=== PATIENT | female | born 1940 | race Caucasian/White ===

== ENCOUNTER 2023-06-06 15:02 | Emergency (ER) | payer MEDICARE, OTHER ==
[2023-06-06 15:56] VITALS: TEMP 97
--- NOTE | 2023-06-06 16:14 | ERPHSYRPT ---
- History of Present Illness Time Seen by Provider: 06/06/23 16:02 Historian: patient Exam Limitations: no limitations Patient Subjective Stated Complaint: pt was sent from Dr. Wan's office due to abnormal labs and an elevated WBC Triage Nursing Assessment: Pt brought to the ER by her , hypotensive, rates stomach pain as 5/10, pt has had diarrhea and is not having it now, states that she has had a fever but is afebrile today, N&V has subsided, weak, tired, headache, pt's been on ozempic for approx 3 months, pt's PCP told her that she had a virus, pulses normal, skin n/c/d, pt walked into the ER holding onto her husbands arm, doesn't appear to be in any distress Physician History: Ten days ago pt started with vomiting, diarrhea, sore throat and dull epigastric pain up to 10/10 in severity; denies chest pain, shortness of air, cough. Allergies/Adverse Reactions: Sulfa (Sulfonamide Antibiotics) Allergy (Verified 06/06/23 15:56) Home Medications: Atorvastatin Calcium 40 mg PO DAILY 06/06/23 [History] Clopidogrel Bisulfate [Clopidogrel] 75 mg PO DAILY 06/06/23 [History] Famotidine [Pepcid AC] 20 mg PO DAILY 06/06/23 [History] Hydrochlorothiazide 25 mg [hydroDIURIL 25 MG] 25 mg PO DAILY 06/06/23 [History] Insulin Glargine,Hum.rec.anlog [Basaglar Kwikpen U-100] 28 unit SQ HS 06/06/23 [History] Isosorbide Mononitrate [Isosorbide Mononitrate ER] 30 mg PO DAILY 06/06/23 [History] Levothyroxine Sodium 75 Mcg [Synthroid 75 Mcg] 75 mcg PO DAILY 06/06/23 [History] Metoprolol Tartrate [Lopressor] 100 mg PO BID 06/06/23 [History] Semaglutide [Ozempic] 0.5 mg SQ WEEKLY 06/06/23 [History] Sertraline HCl [Zoloft] 25 mg PO DAILY 06/06/23 [History] Trazodone HCl 50 mg [Desyrel 50 mg] 50 mg PO HS 06/06/23 [History] Hx Influenza Vaccination/Date Given: Yes Hx Pneumococcal Vaccination/Date Given: Yes Travel Risk - International Travel Have you traveled outside of the country in past 3 weeks: No - Emerging Infectious Disease Are you exhibiting symptoms associated with any current EIDs: Yes Symptoms: Abdominal Pain - Review of Systems Ears, Nose, & Throat: Throat Pain Respiratory: No Dyspnea Cardiac: No Chest Pain Abdominal/Gastrointestinal: Abdominal Pain, Vomiting, Diarrhea Neurological: No Headache - Past Medical History Pertinent Past Medical History: Yes Cardiac History: High Cholesterol, Hypertension Endocrine Medical History: Diabetes Type II Psycho-Social History: Depression - Past Surgical History Past Surgical History: Yes Cardiac: Cardiac Stent Female Surgical History: Tubal Ligation Other Surgical History: stents in legs due to PAD - Social History Smoking Status: Former smoker Exposure to second hand smoke: No Drug Use: none - Nursing Vital Signs Nursing Vital Signs: Initial Vital Signs Temperature 97.0 F 06/06/23 15:35 Pulse Rate 87 06/06/23 15:35 Blood Pressure 91/54 06/06/23 15:35 O2 Sat by Pulse Oximetry 95 06/06/23 15:35 Pain Scale Pain Intensity 5 - Physical Exam General Appearance: alert Eye Exam: eyes nml inspection Ears, Nose, Throat Exam: TMs normal, pharyngeal erythema Neck Exam: normal inspection Respiratory Exam: lungs clear Cardiovascular Exam: normal heart sounds Gastrointestinal/Abdomen Exam: soft, normal bowel sounds Back Exam: normal inspection Extremity Exam: No pedal edema Neurologic Exam: alert, cooperative Skin Exam: warm, dry SpO2 Interpretation: normal SpO2: 95 O2 Delivery: Room Air - Course Nursing assessment & vital signs reviewed: Yes - CT Exams Abdomen/Pelvis CT Interpretation: Tele-radiologist Report (Acute calcular cholecystitis. Multiple distal CBD stones causing biliary obstruction. See rest of report.) Ordered Tests: Active Orders 24 hr Category Date Time Status IV Insertion STAT Care 06/06/23 16:12 Active IV Insertion-2nd Peripheral STAT Care 06/06/23 17:53 Active ABDOMEN AND PELVIS W/0 CONTRAS [CT] Stat Exams 06/06/23 16:13 Completed AMYLASE Stat Lab 06/06/23 16:50 Completed BLOOD CULTURE Stat Lab 06/06/23 17:40 Ordered CBC W DIFF Stat Lab 06/06/23 16:50 Completed CMP Stat Lab 06/06/23 16:50 Completed CULTURE,URINE Stat Lab 06/06/23 16:15 Received LIPASE Stat Lab 06/06/23 16:50 Completed Lactic Acid Stat Lab 06/06/23 17:33 Completed UA W/RFX UR CULTURE Stat Lab 06/06/23 16:15 Completed Medication Summary Discontinued Medications Generic Name Dose Route Start Last Admin Trade Name Melina PRN Reason Stop Dose Admin Sodium Chloride 1,000 mls @ 999 mls/hr 06/06/23 16:12 06/06/23 17:32 Sodium Chloride 0.9% 1000 Ml IV 06/06/23 17:12 Infused .Q1H1M STA Infusion Sodium Chloride Confirm 06/06/23 16:17 Sodium Chloride 0.9% 1000 Ml Administered 06/06/23 16:18 Dose 1,000 mls @ ud .ROUTE .STK-MED ONE Sodium Chloride 1,000 mls @ 999 mls/hr 06/06/23 17:34 06/06/23 19:03 Sodium Chloride 0.9% 1000 Ml IV 06/06/23 18:34 Infused .Q1H1M STA Infusion Piperacillin Sod/Tazobactam 100 mls @ 200 mls/hr 06/06/23 17:43 06/06/23 18:01 Sod 3.375 gm/ Sodium Chloride IV 06/06/23 18:12 200 mls/hr STAT ONE Administration Sodium Chloride Confirm 06/06/23 17:57 Sodium Chloride 100ml Mini-Bag Plus Administered 06/06/23 17:58 Dose 100 mls @ ud IV .STK-MED ONE Sodium Chloride Confirm 06/06/23 17:57 Sodium Chloride 0.9% 1000 Ml Administered 06/06/23 17:58 Dose 1,000 mls @ ud .ROUTE .STK-MED ONE Morphine Sulfate 2 mg 06/06/23 16:12 06/06/23 16:22 Morphine Sulfate 2 Mg/Ml Inj IV 06/06/23 16:13 2 mg STAT ONE Administration Morphine Sulfate Confirm 06/06/23 16:17 Morphine Sulfate 2 Mg/Ml Inj Administered 06/06/23 16:18 Dose 2 mg .ROUTE .STK-MED ONE Morphine Sulfate 2 mg 06/06/23 18:59 06/06/23 19:06 Morphine Sulfate 2 Mg/Ml Inj IV 06/06/23 19:00 2 mg STAT ONE Administration Morphine Sulfate Confirm 06/06/23 19:02 Morphine Sulfate 2 Mg/Ml Inj Administered 06/06/23 19:03 Dose 2 mg .ROUTE .STK-MED ONE Ondansetron HCl 4 mg 06/06/23 16:12 06/06/23 16:22 Ondansetron Hcl 4 Mg/2 Ml Vial IV 06/06/23 16:13 4 mg STAT ONE Administration Ondansetron HCl Confirm 06/06/23 16:16 Ondansetron Hcl 4 Mg/2 Ml Vial Administered 06/06/23 16:17 Dose 4 mg .ROUTE .STK-MED ONE Piperacillin Sod/Tazobactam Sod Confirm 06/06/23 17:57 Piperacillin/Tazobactam Sodium 3.375 Gm Vial Administered 06/06/23 17:58 Dose 3.375 gm IV .STK-MED ONE Lab/Rad Data: Laboratory Result Diagrams 06/06/23 16:50 06/06/23 16:50 Laboratory Results 06/06/23 06/06/23 06/06/23 Range/Units 17:33 16:50 16:50 WBC (4.0-10.5) x10^3/uL RBC (4.1-5.4) x10^6/uL Hgb (12.0-16.0) g/dL Hct (35-47) % MCV (78-100) fL MCH (26-32) pg MCHC (32-36) g/dL RDW (11.5-14.0) % Plt Count (150-450) x10^3/uL MPV (7.5-11.0) fL Gran % (36.0-66.0) % Immature Gran % (Auto) (0.00-0.4) % Nucleat RBC Rel Count (0.00-0.1) % Eos # (Auto) (0-0.5) x10^3/uL Immature Gran # (Auto) (0.00-0.03) x10^3u/L Absolute Lymphs (auto) (1.0-4.6) x10^3/uL Absolute Monos (auto) (0.0-1.3) x10^3/uL Absolute Nucleated RBC (0.00-0.01) x10^3u/L Lymphocytes % (24.0-44.0) % Monocytes % (0.0-12.0) % Eosinophils % (0.00-5.0) % Basophils % (0.0-0.4) % Absolute Granulocytes (1.4-6.9) x10^3/uL Basophils # (0-0.4) x10^3/uL Sodium (135-145) mmol/L Potassium (3.5-5.1) mmol/L Chloride (98-107) mmol/L Carbon Dioxide (22-30) mmol/L Anion Gap (5-15) MEQ/L BUN (7-17) mg/dL Creatinine (0.52-1.04) mg/dL Estimated GFR ML/MIN Glucose (74-106) mg/dL Lactic Acid 1.5 (0.4-2.0) Calcium (8.4-10.2) mg/dL Total Bilirubin (0.2-1.3) mg/dL AST (14-36) U/L ALT (0-35) U/L Alkaline Phosphatase (38-126) U/L Serum Total Protein (6.3-8.2) g/dL Albumin (3.5-5.0) g/dL Amylase (30-110) U/L Lipase (23-300) U/L Urine Color (Yellow) Urine Appearance (Clear) Urine pH (4.6-8.0) Ur Specific [place] (1.005-1.030) Urine Protein (Negative) Urine Glucose (UA) (Negative) mg/dL Urine Ketones (Negative) Urine Blood (Negative) Urine Nitrite (Negative) Urine Bilirubin (Negative) Urine Urobilinogen (0.2) mg/dL Ur Leukocyte Esterase (Negative) U Hyaline Cast (Auto) (0-2) /LPF Urine Microscopic RBC (0-5) /HPF Urine Microscopic WBC (0-5) /HPF Ur Epithelial Cells (None Seen) /HPF Urine Bacteria (None Seen) /HPF Urine Yeast (Budding) (None Seen) /HPF Urine Culture Reflexed (NO) Influenza Type A Ag NEGATIVE (NEGATIVE) Influenza Type B Ag NEGATIVE (NEGATIVE) RSV (PCR) NEGATIVE (NEGATIVE) SARS-CoV-2 (PCR) NEGATIVE (NEGATIVE) Group A Strep Antibody NOT DETECTED (NEGATIVE) 06/06/23 06/06/23 06/06/23 Range/Units 16:50 16:50 16:15 WBC 20.0 H (4.0-10.5) x10^3/uL RBC 3.59 L (4.1-5.4) x10^6/uL Hgb 10.7 L (12.0-16.0) g/dL Hct 30.5 L (35-47) % MCV 85.0 (78-100) fL MCH 29.8 (26-32) pg MCHC 35.1 (32-36) g/dL RDW 13.2 (11.5-14.0) % Plt Count 312 (150-450) x10^3/uL MPV 10.0 (7.5-11.0) fL Gran % 83.7 H (36.0-66.0) % Immature Gran % (Auto) 2.5 H (0.00-0.4) % Nucleat RBC Rel Count 0.0 (0.00-0.1) % Eos # (Auto) 0.04 (0-0.5) x10^3/uL Immature Gran # (Auto) 0.50 H (0.00-0.03) x10^3u/L Absolute Lymphs (auto) 1.23 (1.0-4.6) x10^3/uL Absolute Monos (auto) 1.44 H (0.0-1.3) x10^3/uL Absolute Nucleated RBC 0.00 (0.00-0.01) x10^3u/L Lymphocytes % 6.2 L (24.0-44.0) % Monocytes % 7.2 (0.0-12.0) % Eosinophils % 0.2 (0.00-5.0) % Basophils % 0.2 (0.0-0.4) % Absolute Granulocytes 16.75 H (1.4-6.9) x10^3/uL Basophils # 0.04 (0-0.4) x10^3/uL Sodium 125 L (135-145) mmol/L Potassium 3.5 (3.5-5.1) mmol/L Chloride 90 L (98-107) mmol/L Carbon Dioxide 25 (22-30) mmol/L Anion Gap 13.0 (5-15) MEQ/L BUN 49 H (7-17) mg/dL Creatinine 2.57 H (0.52-1.04) mg/dL Estimated GFR 18.1 ML/MIN Glucose 207 H (74-106) mg/dL Lactic Acid (0.4-2.0) Calcium 8.4 (8.4-10.2) mg/dL Total Bilirubin 2.90 H (0.2-1.3) mg/dL AST 84 H (14-36) U/L ALT 224 H (0-35) U/L Alkaline Phosphatase 309 H (38-126) U/L Serum Total Protein 7.1 (6.3-8.2) g/dL Albumin 3.4 L (3.5-5.0) g/dL Amylase 68 (30-110) U/L Lipase 118 (23-300) U/L Urine Color Dark Yellow A (Yellow) Urine Appearance Turbid A (Clear) Urine pH 5.0 (4.6-8.0) Ur Specific [place] 1.015 (1.005-1.030) Urine Protein 30 (Negative) Urine Glucose (UA) Negative (Negative) mg/dL Urine Ketones Negative (Negative) Urine Blood Negative (Negative) Urine Nitrite Negative (Negative) Urine Bilirubin Small A (Negative) Urine Urobilinogen 1.0 A (0.2) mg/dL Ur Leukocyte Esterase Large A (Negative) U Hyaline Cast (Auto) 20-50 (0-2) /LPF Urine Microscopic RBC 3-5 (0-5) /HPF Urine Microscopic WBC 51-100 A (0-5) /HPF Ur Epithelial Cells Many A (None Seen) /HPF Urine Bacteria Moderate A (None Seen) /HPF Urine Yeast (Budding) Few A (None Seen) /HPF Urine Culture Reflexed YES (NO) Influenza Type A Ag (NEGATIVE) Influenza Type B Ag (NEGATIVE) RSV (PCR) (NEGATIVE) SARS-CoV-2 (PCR) (NEGATIVE) Group A Strep Antibody (NEGATIVE) - Progress Progress: unchanged Discussed with : Raul (Spoke with Santiago Parmar - pt needs ERCP - transfer), Other (Spoke with & discussed pt with Dr. Daugherty([id number]) who accepted pt for transfer to [facility] as a direct admission.) Counseled pt/family regarding: lab results, diagnosis, rad results Medical Desision Making - Diagnostic Testing Diagnostic test were ordered, analyzed, and reviewed by me: Yes Radiological Interpretation: Teleradiologist Report - Departure Departure Disposition: Transfer ([facility]) Clinical Impression: Acute cholecystitis, Multiple CBD stones, Leukocytosis, Abdominal pain, Vomiting, Diarrhea, UTI (urinary tract infection) Condition: Stable Critical Care Time: No Referrals: CHANDLER WAN MD [Primary Care Provider] - Follow up/PCP as directed
[2023-06-06] MEDS ORDERED: Zofran 4 MG/2 ML VIAL ONE (16:16)
[2023-06-06] MEDS ORDERED: Sodium Chloride 0.9% 1000 ML 1,000 ML ONE ×2 (16:17→17:57)
[2023-06-06] MEDS ORDERED: MORPHINE SULFATE 2 MG INJ ONE ×2 (16:17→19:02)
[2023-06-06] MEDS: Sodium Chloride 0.9% 1000 ML 1,000 ML IV STA ×2 (16:21→18:02)
[2023-06-06] MEDS: MORPHINE SULFATE 2 MG INJ IV ONE ×2 (16:22→19:06)
[2023-06-06] MEDS: Zofran 4 MG/2 ML VIAL IV ONE (16:22)
[2023-06-06 17:07] LABS: Absolute Neutrophil Ct (ANC) 16.75 x10^3/uL (1.4-6.9); BASOPHIL % 0.2 % (0.0-0.4); Basophil (Absolute #) 0.04 x10^3/uL (0-0.4); Eosinophil % 0.2 % (0.00-5.0); Eosinophil (Absolute #) 0.04 x10^3/uL (0-0.5); Hematocrit 30.5 % (35-47); Hemoglobin 10.7 g/dL (12.0-16.0); IMMATURE GRAN % 2.5 % (0.00-0.4); Lymphocyte (Absolute #) 1.23 x10^3/uL (1.0-4.6); Lymphocytes % 6.2 % (24.0-44.0); Mean Corpuscular Hemoglobin 29.8 pg (26-32); Mean Corpuscular Hgb Concent. 35.1 g/dL (32-36); Monocyte (Absolute #) 1.44 x10^3/uL (0.0-1.3); Monocytes % 7.2 % (0.0-12.0); Neutrophil % 83.7 % (36.0-66.0); Platelet Count 312 x10^3/uL (150-450); Red Blood Count 3.59 x10^6/uL (4.1-5.4); Red Cell Distribution Width 13.2 % (11.5-14.0)
[2023-06-06 17:26] LABS: ALBUMIN 3.4 g/dL (3.5-5.0); BILIRUBIN,TOTAL 2.9 mg/dL (0.2-1.3); Calcium 8.4 mg/dL (8.4-10.2); Creatinine 1 2.57 mg/dL (0.52-1.04); EST GLOMERULAR FILTRATION RATE 18.1 ML/MIN; Potassium 3.5 mmol/L (3.5-5.1); Total Protein 7.1 g/dL (6.3-8.2)
[2023-06-06 17:28] LABS: Appearance Turbid (Clear); Bacteria Moderate /HPF (None Seen); Bilirubin Small (Negative); Blood Negative (Negative); Epithelial Cells Many /HPF (None Seen); Glucose, Urine Negative (Negative); Ketones Negative (Negative); Leukocyte Esterase Large (Negative); Nitrite Negative (Negative); Protein,Urine Dip 30 (Negative); Specific Gravity 1.015 (1.005-1.030); WBC 51-100 /HPF (0-5)
--- NOTE | 2023-06-06 17:38 | XRAY ---
CLINICAL HISTORY: pain COMPARISON: None TECHNIQUE: A CT scan of the abdomen and abdomen was performed without IV contrast. No oral contrast. "One of the following dose reduction techniques were utilized for this exam: Automated exposure control, adjustment of the mA and/or kV according to patient size, and use of iterative reconstruction." FINDINGS: The gall bladder is distended and shows a circumferential wall thickening up to 11 mm with a pericholecystic streak of fluid, with thick bile and large lamellated calculus, surrounded with pericholecystic fat stranding. Dilated common bile duct shows multiple calculi distally. The liver is normal in size and shape and with regular margins. No focal or diffuse parenchymal abnormality. No hepatic mass is identified. Mildly dilated intrahepatic biliary radicals. Pancreas appears normal. No peripancreatic fat stranding, pancreatic pseudocyst, or peripancreatic fluid collection. Spleen normal in size, no mass seen. Both adrenal glands are unremarkable. Both kidneys are normal in size, shape, and orientation. Bilateral renal cysts noted, the largest on the right 8.1 x 5.3 cm, one on the left measuring 3.3 x 2.6 cm. A small 3mm calculus is seen at the midpole of the right kidney. Both ureters and urinary bladder appear normal. Stomach and small bowel loops are unremarkable. The caecum and ileocecal junction appear normal. Large bowel loops appear normal without evidence of bowel obstruction. The sigmoid and rectum appear normal. No evidence of significant enlargement of the mesenteric or retroperitoneal lymph nodes. Visualized thoracic and lumbar spine show degenerative spondylosis. Sclerosis and irregularity of proximal sacrum. The aorta shows severe atherosclerosis with extensive wall calcification extending to the femoral level bilaterally. IMPRESSION: 1. Acute calcular cholecystitis. 2. Multiple distal CBD stones causing biliary obstruction. 3. Bilateral multiple simple renal cysts and a tiny right renal calculus. [facility] ER office was called at at 4:29 PM QUILL REAMER, 06/06/2023 and ER physician Jerry was informed about significant findings. Electronically Signed by: Karolyn Valero MD. (06/06/2023 17:34:08 EDT)
[2023-06-06 17:49] LABS: Hyaline Casts 20-50 /LPF (0-2)
[2023-06-06 17:50] LABS: ADD URINE CULTURE? YES (NO); Budding Yeast Few /HPF (None Seen)
[2023-06-06 17:54] LABS: INFLUENZA A NEGATIVE (NEGATIVE); INFLUENZA B NEGATIVE (NEGATIVE); RESPIRATORY SYNCTIAL VIRUS NEGATIVE (NEGATIVE); SARS-CoV-2 Xpert Express NEGATIVE (NEGATIVE)
[2023-06-06] MEDS ORDERED: PIPERACILLIN/TAZOBACTAM IV ONE (17:57)
[2023-06-06] MEDS ORDERED: Sodium Chloride 100ML MINI-BAG PLUS 100 ML IV ONE (17:57)
[2023-06-06] MEDS: PIPERACILLIN/TAZOBACTAM 3.375 GM in Sodium Chloride 100ML MINI-BAG PLUS 100 ML IV ONE (18:01)
[2023-06-06 21:16] VITALS: BP 122/56; PULSE 100; RESP 18; O2SAT 98
== END 2023-06-06 22:05 | disposition short-term general hospital (02) ==
LOC: ED 15:02
DX: K80.42 Calculus of bile duct with acute cholecystitis without obstruction (principal); D72.829 Elevated white blood cell count, unspecified; R10.13 Epigastric pain; R11.2 Nausea with vomiting, unspecified; R19.7 Diarrhea, unspecified; N39.0 Urinary tract infection, site not specified; J02.9 Acute pharyngitis, unspecified; E78.5 Hyperlipidemia, unspecified; I10 Essential (primary) hypertension; E11.9 Type 2 diabetes mellitus without complications; Z79.02 Long term (current) use of antithrombotics/antiplatelets; Z79.4 Long term (current) use of insulin; Z79.85 Long-term (current) use of injectable non-insulin antidiabetic drugs; Z79.899 Other long term (current) drug therapy; Z11.52 Encounter for screening for COVID-19
CPT/HCPCS: 0241U; 36000; 36415; 74176; 80053; 81001; 82150; 83605; 83690; 85025; 87040; 87077; 87086; 87186; 87651; 96374; 96375; 96376; 99285; J2270; J2405

== ENCOUNTER 2023-06-17 19:00 | Inpatient (IN) | payer MEDICARE, OTHER ==
[2023-06-17] MEDS ORDERED: Sodium Chloride 0.9% 1000 ML 1,000 ML ONE (19:57)
[2023-06-17] MEDS: Sodium Chloride 0.9% 1000 ML 1,000 ML IV SCH (20:00)
--- NOTE | 2023-06-17 20:10 | ERPHSYRPT ---
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 Pt alert and oriented x4. Pt had an ERCP on 06/07/23 at [facility] in [place]. Pt came in tonight because she was concerned that her bag wasn't draining enough. Pt's spouse is concerned that she's dehydrated. Lungs clear, heart tones reg. Abd soft with active bs x4 quad, nontender on palpation. Pt had small bm upon arrival to ER. Pt has approx 50cc of brown liquid in her drainage bag. Physician History: 82-year-old female presents to our ED as per the request of her doctor. Patient states she recently had an ERCP in [place]. Patient was diagnosed with obstructive cholangitis. Patient just completed a course of antibiotics. Patient states she has been feeling weak and dehydrated. No chest pain or shortness of breath. Patient was nauseous earlier today. Nausea has since resolved. Patient reports that her liver enzymes were elevated while at [facility]. She does not know if the liver enzymes normalized. at bedside. They voiced no other complaints or concerns at this time. Portions of this note were created with voice recognition technology. There may be grammatical, spelling, punctuation or sound alike errors Timing/Duration: today Severity: moderate Modifying Factors: Improves With: nothing Associated Symptoms: denies symptoms Allergies/Adverse Reactions: Sulfa (Sulfonamide Antibiotics) Allergy (Verified 06/17/23 19:13) Home Medications: Atorvastatin Calcium 40 mg PO DAILY 06/06/23 [History] Clopidogrel Bisulfate [Clopidogrel] 75 mg PO HS 06/06/23 [History] Famotidine [Pepcid AC] 20 mg PO DAILY 06/06/23 [History] Hydrochlorothiazide 25 mg [hydroDIURIL 25 MG] 25 mg PO DAILY 06/06/23 [History] Insulin Glargine,Hum.rec.anlog [Basaglar Kwikpen U-100] 28 unit SQ HS 06/06/23 [History] Isosorbide Mononitrate [Isosorbide Mononitrate ER] 30 mg PO DAILY 06/06/23 [History] Levothyroxine Sodium 75 Mcg [Synthroid 75 Mcg] 75 mcg PO DAILY 06/06/23 [History] Metoprolol Tartrate [Lopressor] 100 mg PO BID 06/06/23 [History] Sertraline HCl [Zoloft] 25 mg PO DAILY 06/06/23 [History] Trazodone HCl 50 mg [Desyrel 50 mg] 50 mg PO HS 06/06/23 [History] Amlodipine Besylate/Benazepril [Amlodipine-Benazepril 10-20 mg] 1 tab PO DAILY 0 06/17/23 [History] Magnesium Oxide [Magnesium] 400 mg PO HS 06/17/23 [History] Ondansetron ODT 4 MG [Zofran Odt 4 mg] 1 tab SL QID PRN PRN 06/17/23 [History] Oxycodone HCl 5 mg PO Q6H PRN PRN 06/17/23 [History] cilostazoL [Cilostazol] 50 mg PO BID 06/17/23 [History] Hx Tetanus, Diphtheria Vaccination/Date Given: Yes Hx Influenza Vaccination/Date Given: Yes Hx Pneumococcal Vaccination/Date Given: Yes Travel Risk - International Travel Have you traveled outside of the country in past 3 weeks: No - Emerging Infectious Disease Are you exhibiting symptoms associated with any current EIDs: No Symptoms: Abdominal Pain - Review of Systems Constitutional: No Symptoms, No Fever, No Chills Eyes: No Symptoms Ears, Nose, & Throat: No Symptoms Respiratory: No Symptoms, No Cough, No Dyspnea Cardiac: No Symptoms, No Chest Pain, No Edema, No Syncope Abdominal/Gastrointestinal: No Symptoms, No Abdominal Pain, No Nausea, No Vomiti ng, No Diarrhea Genitourinary Symptoms: No Symptoms, No Dysuria Musculoskeletal: No Symptoms, No Back Pain, No Neck Pain Skin: No Symptoms, No Rash Neurological: No Symptoms, No Dizziness, No Focal Weakness, No Sensory Changes Psychological: No Symptoms Endocrine: No Symptoms Hematologic/Lymphatic: No Symptoms Immunological/Allergic: No Symptoms All Other Systems: Reviewed and Negative - Past Medical History Pertinent Past Medical History: Yes Neurological History: No Pertinent History Cardiac History: Coronary Artery Disease, High Cholesterol, Hypertension Endocrine Medical History: Diabetes Type II GI Medical History: Gallbladder Disease Psycho-Social History: Depression - Past Surgical History Past Surgical History: Yes Cardiac: Cardiac Catheterization, Cardiac Stent Gastrointestinal: Other Female Surgical History: Tubal Ligation Other Surgical History: stents in legs due to PAD. ERCP with stent and drainage bag - Social History Smoking Status: Former smoker Exposure to second hand smoke: No Drug Use: none - Nursing Vital Signs Nursing Vital Signs: Initial Vital Signs Temperature 97.7 F 06/17/23 19:00 Pulse Rate 75 06/17/23 19:00 Respiratory Rate 18 06/17/23 19:00 Blood Pressure 103/56 06/17/23 19:00 O2 Sat by Pulse Oximetry 97 06/17/23 19:00 Pain Scale Pain Intensity 0 - Physical Exam General Appearance: no apparent distress, alert Eye Exam: PERRL/EOMI, eyes nml inspection Ears, Nose, Throat Exam: normal ENT inspection, TMs normal, pharynx normal, moist mucous membranes Neck Exam: normal inspection, non-tender, supple, full range of motion Respiratory Exam: normal breath sounds, lungs clear, airway intact, No respiratory distress Cardiovascular Exam: regular rate/rhythm, normal heart sounds, normal peripheral pulses Gastrointestinal/Abdomen Exam: soft, normal bowel sounds, other (Intact biliary drainage bag), No tenderness, No mass Back Exam: normal inspection, normal range of motion, No CVA tenderness, No vertebral tenderness Extremity Exam: normal inspection, normal range of motion, pelvis stable Neurologic Exam: alert, oriented x 3, cooperative, normal mood/affect, nml cerebellar function, nml station & gait, sensation nml, No motor deficits Skin Exam: normal color, warm, dry, No rash Lymphatic Exam: No adenopathy SpO2 Interpretation: normal SpO2: 97 O2 Delivery: Room Air - Course Nursing assessment & vital signs reviewed: Yes Ordered Tests: Active Orders 24 hr Category Date Time Status IV Insertion STAT Care 06/17/23 19:49 Active CBC W DIFF Stat Lab 06/17/23 19:32 Completed CMP Stat Lab 06/17/23 19:32 Completed TROPONIN Q4H Lab 06/17/23 19:32 Completed TROPONIN Q4H Lab 06/18/23 00:00 Ordered TROPONIN Q4H Lab 06/18/23 04:00 Ordered UA W/RFX UR CULTURE Stat Lab 06/17/23 19:49 Ordered Transfer Order Routine Transfer 06/17/23 Ordered Medication Summary Generic Name Dose Route Start Last Admin Trade Name Freq PRN Reason Stop Dose Admin Sodium Chloride 1,000 mls @ 100 mls/hr 06/17/23 20:00 06/17/23 20:00 Sodium Chloride 0.9% 1000 Ml IV 07/17/23 19:59 100 mls/hr .Q10H JANEY Administration Sodium Bicarbonate 150 meq/ 1,150 mls @ 100 mls/hr 06/17/23 21:45 Dextrose/Sodium Chloride IV 07/17/23 21:44 .[id number] JANEY Discontinued Medications Generic Name Dose Route Start Last Admin Trade Name Melina PRN Reason Stop Dose Admin Dextrose/Sodium Chloride Confirm 06/17/23 21:40 Dextrose 5% -0.45 Nacl 1000 Ml Administered 06/17/23 21:41 Dose 1,000 mls @ ud IV .STK-MED ONE Sodium Bicarbonate Confirm 06/17/23 21:40 Sodium Bicarbonate 1 Meq/Ml 50ml Vial Administered 06/17/23 21:41 Dose 150 meq .ROUTE .STK-MED ONE Lab/Rad Data: Laboratory Result Diagrams 06/17/23 19:32 06/17/23 19:32 Laboratory Results 06/17/23 06/17/23 06/17/23 Range/Units 19:32 19:32 19:32 WBC 16.3 H (4.0-10.5) x10^3/uL RBC 4.34 (4.1-5.4) x10^6/uL Hgb 12.8 (12.0-16.0) g/dL Hct 38.0 (35-47) % MCV 87.6 (78-100) fL MCH 29.5 (26-32) pg MCHC 33.7 (32-36) g/dL RDW 13.4 (11.5-14.0) % Plt Count 622 H (150-450) x10^3/uL MPV 9.4 (7.5-11.0) fL Gran % 77.6 H (36.0-66.0) % Immature Gran % (Auto) 1.4 H (0.00-0.4) % Nucleat RBC Rel Count 0.0 (0.00-0.1) % Eos # (Auto) 0.22 (0-0.5) x10^3/uL Immature Gran # (Auto) 0.22 H (0.00-0.03) x10^3u/L Absolute Lymphs (auto) 2.09 (1.0-4.6) x10^3/uL Absolute Monos (auto) 1.06 (0.0-1.3) x10^3/uL Absolute Nucleated RBC 0.00 (0.00-0.01) x10^3u/L Lymphocytes % 12.8 L (24.0-44.0) % Monocytes % 6.5 (0.0-12.0) % Eosinophils % 1.4 (0.00-5.0) % Basophils % 0.3 (0.0-0.4) % Absolute Granulocytes 12.65 H (1.4-6.9) x10^3/uL Basophils # 0.05 (0-0.4) x10^3/uL Sodium 128 L (135-145) mmol/L Potassium 4.6 (3.5-5.1) mmol/L Chloride 98 (98-107) mmol/L Carbon Dioxide 10 L* (22-30) mmol/L Anion Gap 24.3 H (5-15) MEQ/L BUN 56 H (7-17) mg/dL Creatinine 4.17 H (0.52-1.04) mg/dL Estimated GFR 10.1 ML/MIN Glucose 160 H (74-106) mg/dL Calcium 10.0 (8.4-10.2) mg/dL Total Bilirubin 0.90 (0.2-1.3) mg/dL AST 27 (14-36) U/L ALT 36 H (0-35) U/L Alkaline Phosphatase 183 H (38-126) U/L Troponin I < 0.012 (0.000-0.033) ng/mL Serum Total Protein 7.7 (6.3-8.2) g/dL Albumin 4.1 (3.5-5.0) g/dL - Progress Progress: improved Progress Note: 06/17/23 21:[address] Gomez hospitalist [facility] who accepts transfer. However there are no beds immediately available. We will admit patient to our hospital temporarily until bed becomes available which is expected to be tomorrow plan of care discussed with patient. She agrees to admission [facility] for further evaluation and treatment. 06/17/23 21:[address] Bliss who accepts admission to observation. Per Dr. Bliss he is requesting D5 with 3 A of bicarb due to metabolic acidosis. 82-year-old female status post obstructive cholangitis presents to our ED for evaluation of generalized weakness. Patient has not been eating or drinking much at all past 3 days. Patient still has urine output. Physical exam reveals a slightly pale dehydrated appearing female. Laboratory workup reveals an acute renal injury with a creatinine of 4. Patient has metabolic acidosis with a bicarb of 10. Patient has a leukocytosis. UA pending. Patient accepted at [facility] however they currently do not have beds available. We will admit patient to our floor overnight pending transfer. Complex problem addressed is moderate acute complicated No critical care time Complexity data reviewed and analyzed is extensive. Test ordered/reviewed results analyzed and correlated clinically with history of physical exam. Management discussed with Dr. Velasco hospitalist at . Management also discussed with Dr. Bliss hospitalist at [facility][1] who accepts admission at 9:40 PM Risk of complication and a risk of morbidity/mortality is high. Patient requires hospitalization for further evaluation and treatment. Vital stable. Time spent to admit patient approximately 20 minutes. Plan of care established for shared decision making. No social determinants felt present to impede follow-up. Portions of this note were created with voice recognition technology. There may be grammatical, spelling, punctuation or sound alike errors 06/17/23 21:42 Counseled pt/family regarding: lab results, diagnosis - Departure Departure Disposition: Observation Clinical Impression: Dehydration, Acute renal injury, Metabolic acidosis, Generalized weakness, Leukocytosis Condition: Stable Critical Care Time: No Referrals: CHANDLER ALMONTE MD [Primary Care Provider] - Follow up/PCP as directed
[2023-06-17 20:14] LABS: Absolute Neutrophil Ct (ANC) 12.65 x10^3/uL (1.4-6.9); BASOPHIL % 0.3 % (0.0-0.4); Basophil (Absolute #) 0.05 x10^3/uL (0-0.4); Eosinophil % 1.4 % (0.00-5.0); Eosinophil (Absolute #) 0.22 x10^3/uL (0-0.5); Hemoglobin 12.8 g/dL (12.0-16.0); IMMATURE GRAN # 0.22 x10^3u/L (0.00-0.03); IMMATURE GRAN % 1.4 % (0.00-0.4); Lymphocyte (Absolute #) 2.09 x10^3/uL (1.0-4.6); Lymphocytes % 12.8 % (24.0-44.0); Mean Cell Volume 87.6 fL (78-100); Mean Corpuscular Hemoglobin 29.5 pg (26-32); Mean Corpuscular Hgb Concent. 33.7 g/dL (32-36); Mean Platelet Volume 9.4 fL (7.5-11.0); Monocyte (Absolute #) 1.06 x10^3/uL (0.0-1.3); Monocytes % 6.5 % (0.0-12.0); Neutrophil % 77.6 % (36.0-66.0); Platelet Count 622 x10^3/uL (150-450); Red Blood Count 4.34 x10^6/uL (4.1-5.4); Red Cell Distribution Width 13.4 % (11.5-14.0); White Blood Count 16.3 x10^3/uL (4.0-10.5)
[2023-06-17 20:31] LABS: ALBUMIN 4.1 g/dL (3.5-5.0); ANION GAP 24.3 MEQ/L (5-15); BILIRUBIN,TOTAL 0.9 mg/dL (0.2-1.3); Creatinine 1 4.17 mg/dL (0.52-1.04); EST GLOMERULAR FILTRATION RATE 10.1 ML/MIN; Potassium 4.6 mmol/L (3.5-5.1); Total Protein 7.7 g/dL (6.3-8.2)
[2023-06-17] MEDS ORDERED: Dextrose 5% -0.45 NaCl 1000 ML 1,000 ML IV ONE (21:40)
[2023-06-17] MEDS ORDERED: Sodium Bicarbonate 50 MEQ/50 ML VIAL ONE (21:40)
[2023-06-17] MEDS: SODIUM BICARBONATE IV SCH (21:50)
[2023-06-17] MEDS: [UNRECOGNIZED DRUG - OTHER] IV SCH (21:50)
--- NOTE | 2023-06-17 23:40 | PCM.HP ---
History of Present Illness - Chief Complaint Chief Complaint: Acute renal injury, metabolic acidosis, dehydration Date: 06/17/23 History of Present Illness: Ms. CRONIN is a 82 year old female with a past medical history significant for hypertension, hyperlipidemia and diabetes with recent admission for abdominal pain status post ERCP 06/07/23 at where she was diagnosed with cholangitis and treated with antibiotics/drain. She presented to the ER after she had noticed decreasing drainage and was worried about dehydration as she was not eating/drinking much. Upon arrival, she was found to have an elevated creatinine of 4.0 associated with sodium of 128 and bicarb 10. She was given IVFs and recommended for admission. She is resting in bed, awake/alert. No fever or chills. No chest pain or shortness of breath. No nausea, vomiting or diarrhea. No dysuria, hematuria or foamy urine. No recent NSAIDs or contrast exposure. - Review of Systems Constitutional: No Fever, No Chills Eyes: No Vision Changes Ears, Nose, & Throat: No Epistaxis Respiratory: No Orthopnea, No Short Of Breath Cardiac: No Chest Pain, No Edema, No Palpitations Abdominal/Gastrointestinal: No Abdominal Pain, No Nausea, No Vomiting, No Diarrhea Genitourinary Symptoms: No Dysuria, No Frequency, No Hematuria Musculoskeletal: No Arthralgias Skin: No Cellulitis, No Rash Neurological: No Focal Weakness, No Gait Changes Psychological: No Suicidal Ideations Endocrine: No Polyuria, No Polydipsia Medications & Allergies Home Medications: Home Medication List Atorvastatin Calcium 40 mg PO DAILY 06/06/23 [History Confirmed 06/17/23] Clopidogrel Bisulfate [Clopidogrel] 75 mg PO HS 06/06/23 [History Confirmed 06/17/23] Famotidine [Pepcid AC] 20 mg PO DAILY 06/06/23 [History Confirmed 06/17/23] Hydrochlorothiazide 25 mg [hydroDIURIL 25 MG] 25 mg PO DAILY 06/06/23 [History Confirmed 06/17/23] Insulin Glargine,Hum.rec.anlog [Basaglar Kwikpen U-100] 28 unit SQ HS 06/06/23 [History Confirmed 06/17/23] Isosorbide Mononitrate [Isosorbide Mononitrate ER] 30 mg PO DAILY 06/06/23 [History Confirmed 06/17/23] Levothyroxine Sodium 75 Mcg [Synthroid 75 Mcg] 75 mcg PO DAILY 06/06/23 [History Confirmed 06/17/23] Metoprolol Tartrate [Lopressor] 100 mg PO BID 06/06/23 [History Confirmed 06/17/23] Sertraline HCl [Zoloft] 25 mg PO DAILY 06/06/23 [History Confirmed 06/17/23] Trazodone HCl 50 mg [Desyrel 50 mg] 50 mg PO HS 06/06/23 [History Confirmed 06/17/23] Amlodipine Besylate/Benazepril [Amlodipine-Benazepril 10-20 mg] 1 tab PO DAILY 06/17/23 [History Confirmed 06/17/23] Magnesium Oxide [Magnesium] 400 mg PO HS 06/17/23 [History Confirmed 06/17/23] Ondansetron ODT 4 MG [Zofran Odt 4 mg] 1 tab SL QID PRN PRN 06/17/23 [History Confirmed 06/17/23] Oxycodone HCl 5 mg PO Q6H PRN PRN 06/17/23 [History Confirmed 06/17/23] cilostazoL [Cilostazol] 50 mg PO BID 06/17/23 [History Confirmed 06/17/23] Allergies/Adverse Reactions: Allergies Allergy/AdvReac Type Severity Reaction Status Date / Time Sulfa (Sulfonamide Allergy Verified 06/17/23 19:13 Antibiotics) - Past Medical History Past Medical History: Yes Neurological History: No Pertinent History ENT History: Cataracts Cardiac History: Coronary Artery Disease, High Cholesterol, Hypertension, Peripheral Vascular Disease Respiratory History: No Pertinent History Endocrine Medical History: Diabetes Type II Musculoskelatal History: No Pertinent History GI Medical History: Gallbladder Disease History: No Pertinent History Pyscho-Social History: Depression Reproductive Disorders: No Pertinent History Comment: anemia - Past Surgical History Past Surgical History: Yes Neuro Surgical History: No Pertinent History Cardiac History: Cardiac Catheterization, Cardiac Stent, Vascular Surgery Respiratory Surgery: No Pertinent History GI Surgical History: Other Genitourinary Surgical Hx: No Pertinent History Musculskeletal Surgical Hx: No Pertinent History Female Surgical History: Tubal Ligation Other Surgical History: stents in legs due to PAD. ERCP with stent and drainage bag - Social History Smoking Status: Former smoker Exposure to second hand smoke: No Alcohol: None Drug Use: none - Social Determinants of Health Will the patient participate in the screening: Yes Do you worry about a steady place to live?: No Do you have any problems with any of the following?: No known problems In the past 12 months,have you had to go without utilities?: No Have you or anyone in your house had to go without enough: No Transportation Issues: No Has anyone in your support network made you feel unsafe?: No - Physical Exam Vital Signs: Vital Signs - 24 hr Temp Pulse Resp BP BP Pulse Ox 06/17/23 22:00 80 21 110/48 97 06/17/23 21:46 97 06/17/23 21:30 80 24 108/43 97 06/17/23 21:00 74 20 112/62 95 06/17/23 20:30 74 16 94/40 06/17/23 20:00 79 18 78/42 95 06/17/23 19:36 73 19 96/44 95 06/17/23 19:35 77/47 97 06/17/23 19:34 97 06/17/23 19:00 97.7 F 75 18 103/56 97 General Appearance: no apparent distress Neurologic Exam: alert, oriented x 3 Ears, Nose, Throat Exam: dry mucous membranes Neck Exam: normal inspection, supple Respiratory Exam: No respiratory distress Cardiovascular Exam: regular rate/rhythm Gastrointestinal/Abdomen Exam: soft, No tenderness Skin Exam: normal color, No rash Results - Labs Lab/Micro Results: Lab Results-Last 24 Hours 06/17/23 06/17/23 06/17/23 Range/Units 19:32 19:32 19:32 WBC 16.3 H (4.0-10.5) x10^3/uL RBC 4.34 (4.1-5.4) x10^6/uL Hgb 12.8 (12.0-16.0) g/dL Hct 38.0 (35-47) % MCV 87.6 (78-100) fL MCH 29.5 (26-32) pg MCHC 33.7 (32-36) g/dL RDW 13.4 (11.5-14.0) % Plt Count 622 H (150-450) x10^3/uL MPV 9.4 (7.5-11.0) fL Gran % 77.6 H (36.0-66.0) % Immature Gran % (Auto) 1.4 H (0.00-0.4) % Nucleat RBC Rel Count 0.0 (0.00-0.1) % Eos # (Auto) 0.22 (0-0.5) x10^3/uL Immature Gran # (Auto) 0.22 H (0.00-0.03) x10^3u/L Absolute Lymphs (auto) 2.09 (1.0-4.6) x10^3/uL Absolute Monos (auto) 1.06 (0.0-1.3) x10^3/uL Absolute Nucleated RBC 0.00 (0.00-0.01) x10^3u/L Lymphocytes % 12.8 L (24.0-44.0) % Monocytes % 6.5 (0.0-12.0) % Eosinophils % 1.4 (0.00-5.0) % Basophils % 0.3 (0.0-0.4) % Absolute Granulocytes 12.65 H (1.4-6.9) x10^3/uL Basophils # 0.05 (0-0.4) x10^3/uL Sodium 128 L (135-145) mmol/L Potassium 4.6 (3.5-5.1) mmol/L Chloride 98 (98-107) mmol/L Carbon Dioxide 10 L* (22-30) mmol/L Anion Gap 24.3 H (5-15) MEQ/L BUN 56 H (7-17) mg/dL Creatinine 4.17 H (0.52-1.04) mg/dL Estimated GFR 10.1 ML/MIN Glucose 160 H (74-106) mg/dL Calcium 10.0 (8.4-10.2) mg/dL Total Bilirubin 0.90 (0.2-1.3) mg/dL AST 27 (14-36) U/L ALT 36 H (0-35) U/L Alkaline Phosphatase 183 H (38-126) U/L Troponin I < 0.012 (0.000-0.033) ng/mL Serum Total Protein 7.7 (6.3-8.2) g/dL Albumin 4.1 (3.5-5.0) g/dL Assessment/Plan (1) Acute renal injury Current Visit: Yes Status: Acute Assessment & Plan: Likely from prerenal azotemia in setting of thiazide diuretic/CHRISTINE --> ATN but need to rule out AIN from recent antibiotics 1. IVFs 2. Check urine lytes, urine eos 3. Hold HCTZ, Benazepril 4. Follow I/Os 5. Watch electrolytes, creatinine closely - no need for dialysis yet, hopefully can avoid Code(s): N17.9 - ACUTE KIDNEY FAILURE, UNSPECIFIED (2) Hyponatremia Current Visit: Yes Status: Acute Assessment & Plan: Likely from hypovolemia +/- thiazide diuretics 1. Isotonic IVFs 2. Hold HCTZ 3. Check urine lytes, urine osmo 4. Monitor electrolytes closely Code(s): E87.1 - HYPO-OSMOLALITY AND HYPONATREMIA (3) Hypertensive chronic kidney disease with stage 1 through stage 4 chronic kidney disease, or unspecified chronic kidney disease Current Visit: Yes Status: Acute Assessment & Plan: Under fair control 1. Continue bp meds but hold CHRISTINE/HCTZ 2. Low Na diet 3. Monitor blood pressure readings Code(s): I12.9 - HYPERTENSIVE CHRONIC KIDNEY DISEASE W STG 1-4/UNSP CHR KDNY (4) Metabolic acidosis Current Visit: Yes Status: Acute Assessment & Plan: Secondary to CHICHO 1. Bicarb drip 2. Monitor ABG prn 3. Watch kidney function closely Code(s): E87.20 - ACIDOSIS, UNSPECIFIED (5) Acute cholecystitis Current Visit: No Status: Acute Assessment & Plan: Status post antibiotics for acute cholangitis 1. Will need transfer to for further eval 2. Continue antibiotics 3. Monitor drainage Code(s): K81.0 - ACUTE CHOLECYSTITIS Telemedicine Encounter - Telemedicine Encounter Telemedicine Encounter: The entirety of this encounter was performed via Telemedicine"
[2023-06-17] MEDS ORDERED: FEVERALL 650 MG PR PRN (23:51)
[2023-06-18 04:52] LABS: A-aADO2 77; ABG HEMOGLOBIN 11.5; ABG POTASSIUM 3.7 (3.5-5.1); ALLEN TEST OK? y; ARTERIAL BLD GAS O2 SATURATION 98.6 % (95-100); ARTERIAL BLOOD GAS BASE EXCESS -10.2 (-2.0-2.0); ARTERIAL BLOOD GAS FIO2 28 %; ARTERIAL BLOOD GAS PCO2 25 mmHg (35-45); ARTERIAL BLOOD GAS PO2 91 mmHg (75-100); ARTERIAL BLOOD GAS pH 7.35 (7.35-7.45); CARBOXYHEMOGLOBIN 3.3 % THgb (0.0-6.9); HCO3- 13.8 (22-28); HGB O2 SAT 94.2 g/dF (94-100); Methhemoglobin 1.2 % (1.4-1.5); paO2 pAO1 0.54
[2023-06-18 04:53] LABS: ABG SITE LBA
[2023-06-18 05:16] LABS: Absolute Neutrophil Ct (ANC) 7.72 x10^3/uL (1.4-6.9); BASOPHIL % 0.3 % (0.0-0.4); Basophil (Absolute #) 0.03 x10^3/uL (0-0.4); Eosinophil % 1.3 % (0.00-5.0); Eosinophil (Absolute #) 0.15 x10^3/uL (0-0.5); Hematocrit 30.3 % (35-47); Hemoglobin 10.5 g/dL (12.0-16.0); IMMATURE GRAN # 0.06 x10^3u/L (0.00-0.03); IMMATURE GRAN % 0.5 % (0.00-0.4); Lymphocyte (Absolute #) 2.35 x10^3/uL (1.0-4.6); Lymphocytes % 20.9 % (24.0-44.0); Mean Cell Volume 84.2 fL (78-100); Mean Corpuscular Hemoglobin 29.2 pg (26-32); Mean Corpuscular Hgb Concent. 34.7 g/dL (32-36); Mean Platelet Volume 9.4 fL (7.5-11.0); Monocyte (Absolute #) 0.91 x10^3/uL (0.0-1.3); Monocytes % 8.1 % (0.0-12.0); Neutrophil % 68.9 % (36.0-66.0); Platelet Count 461 x10^3/uL (150-450); Red Cell Distribution Width 13.3 % (11.5-14.0); White Blood Count 11.2 x10^3/uL (4.0-10.5)
[2023-06-18 05:23] LABS: Appearance Clear (Clear); Bilirubin Negative (Negative); Blood Negative (Negative); Epithelial Cells Few /HPF (None Seen); Glucose, Urine Negative (Negative); Ketones Negative (Negative); Leukocyte Esterase Negative (Negative); Nitrite Negative (Negative); Protein,Urine Dip Trace (Negative); Specific Gravity 1.015 (1.005-1.030); Urobilinogen 0.2 mg/dL (0.2); WBC 0-2 /HPF (0-5)
[2023-06-18 05:25] LABS: CREATININE,URINE RANDOM 193.4 MG/DL
[2023-06-18 05:44] LABS: ALBUMIN 3.3 g/dL (3.5-5.0); ANION GAP 17.7 MEQ/L (5-15); BILIRUBIN,TOTAL 0.8 mg/dL (0.2-1.3); Calcium 9.1 mg/dL (8.4-10.2); Creatinine 1 3.92 mg/dL (0.52-1.04); EST GLOMERULAR FILTRATION RATE 10.9 ML/MIN; Potassium 3.8 mmol/L (3.5-5.1); Total Protein 6.7 g/dL (6.3-8.2)
[2023-06-18 05:52] LABS: Budding Yeast Few /HPF (None Seen); Hyaline Casts 0-2 /LPF (0-2)
[2023-06-18 05:53] LABS: ADD URINE CULTURE? YES (NO); Bacteria Few /HPF (None Seen)
[2023-06-18] MEDS: SODIUM BICARBONATE 50 MEQ/50 ML ABBOJECT IV ONE (06:56)
[2023-06-18] MEDS: ZOLOFT 50 MG TABLET PO SCH (09:17)
[2023-06-18] MEDS: ZOCOR 20MG PO SCH (09:17)
[2023-06-18] MEDS: Lopressor 50 MG PO SCH (09:17)
[2023-06-18] MEDS: SYNTHROID 75 MCG PO SCH (09:18)
[2023-06-18] MEDS: Imdur 30 MG PO SCH (09:18)
[2023-06-18] MEDS: HEPARIN 5000 UNITS/0.5 ML (HIGH RISK MED) SQ SCH (09:18)
[2023-06-18] MEDS: Pepcid 20 MG PO SCH (09:18)
[2023-06-18] MEDS: NORVASC 5 MG PO SCH (09:27)
[2023-06-18] MEDS: Unasyn 3 GM Vial*** 3 G in Sodium Chloride 100ML MINI-BAG PLUS 100 ML IV SCH (11:07)
[2023-06-18] MEDS: Sodium Bicarbonate 50 MEQ/50 ML VIAL*** 150 MEQ in Dextrose 5%/Water IV Soln. 1000 ML 1... IV SCH (12:01)
--- NOTE | 2023-06-18 12:49 | PCM.DS ---
Discharge Summary Date of Admission: 06/17/23 23:08 Date of Discharge: 06/18/23 Admitting Physician: PASCUAL SOLITARIO MD Primary Care Provider: CHANDLER ALMONTE MD Allergies Allergies Sulfa (Sulfonamide Antibiotics) Allergy (Verified 06/17/23 19:13) Hospital Summary - Hospital Course Hospital Course: Ms. CRONIN is a 82 year old female with a past medical history significant for hypertension, hyperlipidemia and diabetes with recent admission for abdominal pain status post ERCP 06/07/23 at where she was diagnosed with cholangitis and treated with antibiotics/drain. She presented to the ER after she had noticed decreasing drainage and was worried about dehydration as she was not eating/drinking much. Upon arrival, she was found to have an elevated creatinine of 4.0 associated with sodium of 128 and bicarb 10. She was given IVFs and recommended for admission. She is resting in bed, awake/alert. No fever or chills. No chest pain or shortness of breath. No nausea, vomiting or diarrhea. No dysuria, hematuria or foamy urine. No recent NSAIDs or contrast exposure. Bicarb gtt and antibiotics started. She has no c/o pain. She is not in any distress. She denies CP, SOB< abd. pain, N/V/D. - Vitals & Intake/Output Vital Signs: Vital Signs Temperature 97.1 F 06/18/23 08:00 Pulse Rate 80 06/18/23 09:15 Respiratory Rate 16 06/18/23 08:00 Blood Pressure 100/51 06/18/23 09:15 O2 Sat by Pulse Oximetry 93 L 06/18/23 08:00 Intake & Output: Intake & Output 06/16/23 06/17/23 06/18/23 06/19/23 11:59 11:59 11:59 11:59 Intake Total 647 Output Total 250 Balance 397 Weight 76.6 kg - Lab Result Diagrams: 06/18/23 04:42 06/18/23 04:42 Lab Results-Last 24 Hrs: Lab Results-Last 24 Hours 06/17/23 06/17/23 06/17/23 Range/Units 04:50 04:50 19:32 WBC 16.3 H (4.0-10.5) x10^3/uL RBC 4.34 (4.1-5.4) x10^6/uL Hgb 12.8 (12.0-16.0) g/dL Hct 38.0 (35-47) % MCV 87.6 (78-100) fL MCH 29.5 (26-32) pg MCHC 33.7 (32-36) g/dL RDW 13.4 (11.5-14.0) % Plt Count 622 H (150-450) x10^3/uL MPV 9.4 (7.5-11.0) fL Gran % 77.6 H (36.0-66.0) % Immature Gran % (Auto) 1.4 H (0.00-0.4) % Nucleat RBC Rel Count 0.0 (0.00-0.1) % Eos # (Auto) 0.22 (0-0.5) x10^3/uL Immature Gran # (Auto) 0.22 H (0.00-0.03) x10^3u/L Absolute Lymphs (auto) 2.09 (1.0-4.6) x10^3/uL Absolute Monos (auto) 1.06 (0.0-1.3) x10^3/uL Absolute Nucleated RBC 0.00 (0.00-0.01) x10^3u/L Lymphocytes % 12.8 L (24.0-44.0) % Monocytes % 6.5 (0.0-12.0) % Eosinophils % 1.4 (0.00-5.0) % Basophils % 0.3 (0.0-0.4) % Absolute Granulocytes 12.65 H (1.4-6.9) x10^3/uL Basophils # 0.05 (0-0.4) x10^3/uL Puncture Site pCO2 (35-45) mmHg pO2 (75-100) mmHg Base Excess (-2.0-2.0) O2 Saturation (94-100) g/dF ABG pH (7.35-7.45) ABG HCO3 (22-28) ABG O2 Sat (Measured) (95-100) % Benson Test A-a Gradient a/A Ratio Hemoglobin Carboxyhemoglobin (0.0-6.9) % THgb Methemoglobin (1.4-1.5) % Temperature C POC O2 Flow Rate % Sodium (135-145) mmol/L Potassium (3.5-5.1) mmol/L Chloride (98-107) mmol/L Carbon Dioxide (22-30) mmol/L Anion Gap (5-15) MEQ/L BUN (7-17) mg/dL Creatinine (0.52-1.04) mg/dL Estimated GFR ML/MIN Glucose (74-106) mg/dL POC Glucometer (74 to 106) mg/dL Calcium (8.4-10.2) mg/dL Total Bilirubin (0.2-1.3) mg/dL AST (14-36) U/L ALT (0-35) U/L Alkaline Phosphatase (38-126) U/L Troponin I (0.000-0.033) ng/mL Serum Total Protein (6.3-8.2) g/dL Albumin (3.5-5.0) g/dL Prealbumin (17.6-36.0) mg/dL Urine Color Yellow (Yellow) Urine Appearance Clear (Clear) Urine pH 5.0 (4.6-8.0) Ur Specific [place] 1.015 (1.005-1.030) Urine Protein Trace A (Negative) Urine Glucose (UA) Negative (Negative) mg/dL Urine Ketones Negative (Negative) Urine Blood Negative (Negative) Urine Nitrite Negative (Negative) Urine Bilirubin Negative (Negative) Urine Urobilinogen 0.2 (0.2) mg/dL Ur Leukocyte Esterase Negative (Negative) U Hyaline Cast (Auto) 0-2 (0-2) /LPF Urine Microscopic RBC 11-20 A (0-5) /HPF Urine Microscopic WBC 0-2 (0-5) /HPF Ur Epithelial Cells Few (None Seen) /HPF Urine Bacteria Few A (None Seen) /HPF Urine Yeast (Budding) Few A (None Seen) /HPF Urine Culture Reflexed YES (NO) Ur Random Creatinine 193.4 MG/DL Urine Sodium 7 L (30-90) mmol/L 06/17/23 06/17/23 06/18/23 Range/Units 19:32 19:32 04:38 WBC (4.0-10.5) x10^3/uL RBC (4.1-5.4) x10^6/uL Hgb (12.0-16.0) g/dL Hct (35-47) % MCV (78-100) fL MCH (26-32) pg MCHC (32-36) g/dL RDW (11.5-14.0) % Plt Count (150-450) x10^3/uL MPV (7.5-11.0) fL Gran % (36.0-66.0) % Immature Gran % (Auto) (0.00-0.4) % Nucleat RBC Rel Count (0.00-0.1) % Eos # (Auto) (0-0.5) x10^3/uL Immature Gran # (Auto) (0.00-0.03) x10^3u/L Absolute Lymphs (auto) (1.0-4.6) x10^3/uL Absolute Monos (auto) (0.0-1.3) x10^3/uL Absolute Nucleated RBC (0.00-0.01) x10^3u/L Lymphocytes % (24.0-44.0) % Monocytes % (0.0-12.0) % Eosinophils % (0.00-5.0) % Basophils % (0.0-0.4) % Absolute Granulocytes (1.4-6.9) x10^3/uL Basophils # (0-0.4) x10^3/uL Puncture Site LBA pCO2 25 L (35-45) mmHg pO2 91 (75-100) mmHg Base Excess -10.2 L (-2.0-2.0) O2 Saturation 94.2 (94-100) g/dF ABG pH 7.35 (7.35-7.45) ABG HCO3 13.8 L* (22-28) ABG O2 Sat (Measured) 98.6 (95-100) % Benson Test y A-a Gradient 77 a/A Ratio 0.54 Hemoglobin 11.5 Carboxyhemoglobin 3.3 (0.0-6.9) % THgb Methemoglobin 1.2 L (1.4-1.5) % Temperature 37.0 C POC O2 Flow Rate 28 % Sodium 128 L (135-145) mmol/L Potassium 4.6 3.7 (3.5-5.1) mmol/L Chloride 98 (98-107) mmol/L Carbon Dioxide 10 L* (22-30) mmol/L Anion Gap 24.3 H (5-15) MEQ/L BUN 56 H (7-17) mg/dL Creatinine 4.17 H (0.52-1.04) mg/dL Estimated GFR 10.1 ML/MIN Glucose 160 H (74-106) mg/dL POC Glucometer (74 to 106) mg/dL Calcium 10.0 (8.4-10.2) mg/dL Total Bilirubin 0.90 (0.2-1.3) mg/dL AST 27 (14-36) U/L ALT 36 H (0-35) U/L Alkaline Phosphatase 183 H (38-126) U/L Troponin I < 0.012 (0.000-0.033) ng/mL Serum Total Protein 7.7 (6.3-8.2) g/dL Albumin 4.1 (3.5-5.0) g/dL Prealbumin (17.6-36.0) mg/dL Urine Color (Yellow) Urine Appearance (Clear) Urine pH (4.6-8.0) Ur Specific [place] (1.005-1.030) Urine Protein (Negative) Urine Glucose (UA) (Negative) mg/dL Urine Ketones (Negative) Urine Blood (Negative) Urine Nitrite (Negative) Urine Bilirubin (Negative) Urine Urobilinogen (0.2) mg/dL Ur Leukocyte Esterase (Negative) U Hyaline Cast (Auto) (0-2) /LPF Urine Microscopic RBC (0-5) /HPF Urine Microscopic WBC (0-5) /HPF Ur Epithelial Cells (None Seen) /HPF Urine Bacteria (None Seen) /HPF Urine Yeast (Budding) (None Seen) /HPF Urine Culture Reflexed (NO) Ur Random Creatinine MG/DL Urine Sodium (30-90) mmol/L 06/18/23 06/18/23 06/18/23 Range/Units 04:42 04:42 04:42 WBC 11.2 H (4.0-10.5) x10^3/uL RBC 3.60 L (4.1-5.4) x10^6/uL Hgb 10.5 L (12.0-16.0) g/dL Hct 30.3 L (35-47) % MCV 84.2 (78-100) fL MCH 29.2 (26-32) pg MCHC 34.7 (32-36) g/dL RDW 13.3 (11.5-14.0) % Plt Count 461 H (150-450) x10^3/uL MPV 9.4 (7.5-11.0) fL Gran % 68.9 H (36.0-66.0) % Immature Gran % (Auto) 0.5 H (0.00-0.4) % Nucleat RBC Rel Count 0.0 (0.00-0.1) % Eos # (Auto) 0.15 (0-0.5) x10^3/uL Immature Gran # (Auto) 0.06 H (0.00-0.03) x10^3u/L Absolute Lymphs (auto) 2.35 (1.0-4.6) x10^3/uL Absolute Monos (auto) 0.91 (0.0-1.3) x10^3/uL Absolute Nucleated RBC 0.00 (0.00-0.01) x10^3u/L Lymphocytes % 20.9 L (24.0-44.0) % Monocytes % 8.1 (0.0-12.0) % Eosinophils % 1.3 (0.00-5.0) % Basophils % 0.3 (0.0-0.4) % Absolute Granulocytes 7.72 H (1.4-6.9) x10^3/uL Basophils # 0.03 (0-0.4) x10^3/uL Puncture Site pCO2 (35-45) mmHg pO2 (75-100) mmHg Base Excess (-2.0-2.0) O2 Saturation (94-100) g/dF ABG pH (7.35-7.45) ABG HCO3 (22-28) ABG O2 Sat (Measured) (95-100) % Benson Test A-a Gradient a/A Ratio Hemoglobin Carboxyhemoglobin (0.0-6.9) % THgb Methemoglobin (1.4-1.5) % Temperature C POC O2 Flow Rate % Sodium 125 L (135-145) mmol/L Potassium 3.8 (3.5-5.1) mmol/L Chloride 101 (98-107) mmol/L Carbon Dioxide 11 L* (22-30) mmol/L Anion Gap 17.7 H (5-15) MEQ/L BUN 60 H (7-17) mg/dL Creatinine 3.92 H (0.52-1.04) mg/dL Estimated GFR 10.9 ML/MIN Glucose 149 H (74-106) mg/dL POC Glucometer (74 to 106) mg/dL Calcium 9.1 (8.4-10.2) mg/dL Total Bilirubin 0.80 (0.2-1.3) mg/dL AST 21 (14-36) U/L ALT 29 (0-35) U/L Alkaline Phosphatase 145 H (38-126) U/L Troponin I (0.000-0.033) ng/mL Serum Total Protein 6.7 (6.3-8.2) g/dL Albumin 3.3 L (3.5-5.0) g/dL Prealbumin 28.32 (17.6-36.0) mg/dL Urine Color (Yellow) Urine Appearance (Clear) Urine pH (4.6-8.0) Ur Specific [place] (1.005-1.030) Urine Protein (Negative) Urine Glucose (UA) (Negative) mg/dL Urine Ketones (Negative) Urine Blood (Negative) Urine Nitrite (Negative) Urine Bilirubin (Negative) Urine Urobilinogen (0.2) mg/dL Ur Leukocyte Esterase (Negative) U Hyaline Cast (Auto) (0-2) /LPF Urine Microscopic RBC (0-5) /HPF Urine Microscopic WBC (0-5) /HPF Ur Epithelial Cells (None Seen) /HPF Urine Bacteria (None Seen) /HPF Urine Yeast (Budding) (None Seen) /HPF Urine Culture Reflexed (NO) Ur Random Creatinine MG/DL Urine Sodium (30-90) mmol/L 06/17/24 Range/Units 11:45 WBC (4.0-10.5) x10^3/uL RBC (4.1-5.4) x10^6/uL Hgb (12.0-16.0) g/dL Hct (35-47) % MCV (78-100) fL MCH (26-32) pg MCHC (32-36) g/dL RDW (11.5-14.0) % Plt Count (150-450) x10^3/uL MPV (7.5-11.0) fL Gran % (36.0-66.0) % Immature Gran % (Auto) (0.00-0.4) % Nucleat RBC Rel Count (0.00-0.1) % Eos # (Auto) (0-0.5) x10^3/uL Immature Gran # (Auto) (0.00-0.03) x10^3u/L Absolute Lymphs (auto) (1.0-4.6) x10^3/uL Absolute Monos (auto) (0.0-1.3) x10^3/uL Absolute Nucleated RBC (0.00-0.01) x10^3u/L Lymphocytes % (24.0-44.0) % Monocytes % (0.0-12.0) % Eosinophils % (0.00-5.0) % Basophils % (0.0-0.4) % Absolute Granulocytes (1.4-6.9) x10^3/uL Basophils # (0-0.4) x10^3/uL Puncture Site pCO2 (35-45) mmHg pO2 (75-100) mmHg Base Excess (-2.0-2.0) O2 Saturation (94-100) g/dF ABG pH (7.35-7.45) ABG HCO3 (22-28) ABG O2 Sat (Measured) (95-100) % Benson Test A-a Gradient a/A Ratio Hemoglobin Carboxyhemoglobin (0.0-6.9) % THgb Methemoglobin (1.4-1.5) % Temperature C POC O2 Flow Rate % Sodium (135-145) mmol/L Potassium (3.5-5.1) mmol/L Chloride (98-107) mmol/L Carbon Dioxide (22-30) mmol/L Anion Gap (5-15) MEQ/L BUN (7-17) mg/dL Creatinine (0.52-1.04) mg/dL Estimated GFR ML/MIN Glucose (74-106) mg/dL POC Glucometer 118 H (74 to 106) mg/dL Calcium (8.4-10.2) mg/dL Total Bilirubin (0.2-1.3) mg/dL AST (14-36) U/L ALT (0-35) U/L Alkaline Phosphatase (38-126) U/L Troponin I (0.000-0.033) ng/mL Serum Total Protein (6.3-8.2) g/dL Albumin (3.5-5.0) g/dL Prealbumin (17.6-36.0) mg/dL Urine Color (Yellow) Urine Appearance (Clear) Urine pH (4.6-8.0) Ur Specific [place] (1.005-1.030) Urine Protein (Negative) Urine Glucose (UA) (Negative) mg/dL Urine Ketones (Negative) Urine Blood (Negative) Urine Nitrite (Negative) Urine Bilirubin (Negative) Urine Urobilinogen (0.2) mg/dL Ur Leukocyte Esterase (Negative) U Hyaline Cast (Auto) (0-2) /LPF Urine Microscopic RBC (0-5) /HPF Urine Microscopic WBC (0-5) /HPF Ur Epithelial Cells (None Seen) /HPF Urine Bacteria (None Seen) /HPF Urine Yeast (Budding) (None Seen) /HPF Urine Culture Reflexed (NO) Ur Random Creatinine MG/DL Urine Sodium (30-90) mmol/L Micro Results-Entire Visit: Accuchecks Date 06/18/23 Time 12:03 - Procedures and Test Procedures and Tests throughout Hospitalization: Therapy Orders & Screens 06/18/23 00:20 OT Screen per Nursing Assess ONCE Comment: Protocol Order Physician Instructions: Greater than 3 points order OT Admission Screening Reason For Exam: Triggered on Admission Diagnosis: Acute renal injury, metabolic acidosis, dehydration Open Wound/Cellutlitis/Pressure Ulcers: Yes Acute Fx/ORIF/Change in wt bearing status: No Severe MUSCULOSKELETAL pain: No ADL Dysfunction: No Acute CVA w/Hemiparesis/Hemiplegia: No Decreased Functional Mobility/Strength: No Sprain/Strain: No Acute Post-op Mobility Dysfunction: No Total Points: 5 PT Screen per Nursing Assess ONCE Comment: Protocol Order Physician Instructions: Greater than 3 points order PT Admission Screenin Reason For Exam: Triggered on Admission Diagnosis: Acute renal injury, metabolic acidosis, dehydration Open Wound/Cellutlitis/Pressure Ulcers: Yes Acute Fx/ORIF/Change in wt bearing status: No Severe MUSCULOSKELETAL pain: No ADL Dysfunction: No Acute CVA w/Hemiparesis/Hemiplegia: No Decreased Functional Mobility/Strength: No Sprain/Strain: No Acute Post-op Mobility Dysfunction: No Total Points: 5 ST Screen per Nursing Assess ONCE Comment: Protocol Order Physician Instructions: Greater than [address] Admission Screening Reason For Exam: Triggered on Admission Diagnosis: Acute renal injury, metabolic acidosis, dehydration CVA/Dyshpagia/Aphasia: No Cognitive Deficits: No Dehydration/Nutrition Deficit: Yes Reflux: No Oral-Motor Difficulties: No Pneumonia: No Skilled Nursing Resident: No Total Points: 5 Discharge Exam General Appearance: no apparent distress, alert Neurologic Exam: alert, oriented x 3, cooperative, normal mood/affect, nml cerebellar function, sensation nml, No motor deficits Eye Exam: PERRL, EOMI, eyes nml inspection Ears, Nose, Throat Exam: normal ENT inspection, pharynx normal, moist mucous membranes Neck Exam: normal inspection, non-tender, supple, full range of motion Respiratory Exam: normal breath sounds, lungs clear, No respiratory distress Cardiovascular Exam: regular rate/rhythm, normal heart sounds Gastrointestinal/Abdomen Exam: soft, No tenderness, No mass Pelvic Exam: deferred Rectal Exam: deferred Back Exam: normal inspection, normal range of motion, No CVA tenderness, No vertebral tenderness Extremity Exam: normal inspection, normal range of motion Skin Exam: normal color, warm, dry Wound Assessment: Skin/Wound Assessment Wound/Incision Assessment Start: 06/18/23 00:20 Text: Status: Active Freq: Q6H Protocol: Document 06/18/23 07:48 ALMITA (Rec: 06/18/23 07:55 ALMITA [id number]) Wound/Incision Assessment Right Abdomen Wound Assessment Shift Assessment Wound Type Incision Wound Stage Non Pressure Wound Dressing Status Dry & Intact Drainage Amount None Drainage Odor None/Absent Comment GALLBLADDER DRAIN, DRESSING IS CLEAN, DRY AND INTACT Final Diagnosis/Problem List - Final Discharge Diagnosis/Problem (1) Acute renal injury Current Visit: Yes Status: Acute Assessment & Plan: Likely from prerenal azotemia in setting of thiazide diuretic/CHRISTINE --> ATN but need to rule out AIN from recent antibiotics 1. IVFs- stopped 2. Check urine lytes, urine eos 3. Hold HCTZ, Benazepril 4. Follow I/Os 5. Watch electrolytes, creatinine closely - no need for dialysis yet, hopefully can avoid Code(s): N17.9 - ACUTE KIDNEY FAILURE, UNSPECIFIED (2) Hypertensive chronic kidney disease with stage 1 through stage 4 chronic k idney disease, or unspecified chronic kidney disease Current Visit: Yes Status: Acute Assessment & Plan: Under fair control 1. Continue bp meds but hold CHRISTINE/HCTZ 2. Low Na diet 3. Monitor blood pressure readings Code(s): I12.9 - HYPERTENSIVE CHRONIC KIDNEY DISEASE W STG 1-4/UNSP CHR KDNY (3) Hyponatremia Current Visit: Yes Status: Acute Assessment & Plan: Likely from hypovolemia +/- thiazide diuretics 1. Isotonic IVFs 2. Hold HCTZ 3. Check urine lytes, urine osmo 4. Monitor electrolytes closely Code(s): E87.1 - HYPO-OSMOLALITY AND HYPONATREMIA (4) Metabolic acidosis Current Visit: Yes Status: Acute Assessment & Plan: Secondary to CHICHO 1. Bicarb drip 2. Monitor ABG prn 3. Watch kidney function closely Code(s): E87.20 - ACIDOSIS, UNSPECIFIED (5) Acute cholecystitis Current Visit: No Status: Acute Assessment & Plan: Status post antibiotics for acute cholangitis 1. Will need transfer to for further eval 2. Continue antibiotics 3. Monitor drainage 4. Unasyn started IV Code(s): K81.0 - ACUTE CHOLECYSTITIS - Discharge Discharge Date: 06/18/23 ([facility]) Disposition: DC TO OTHER HOSP Condition: Stable Prescriptions: Continue Isosorbide Mononitrate [Isosorbide Mononitrate ER] 30 mg PO DAILY Hydrochlorothiazide 25 mg [hydroDIURIL 25 MG] 25 mg PO DAILY Metoprolol Tartrate [Lopressor] 100 mg PO BID Atorvastatin Calcium 40 mg PO DAILY Sertraline HCl [Zoloft] 25 mg PO DAILY Levothyroxine Sodium 75 Mcg [Synthroid 75 Mcg] 75 mcg PO DAILY Trazodone HCl 50 mg [Desyrel 50 mg] 50 mg PO HS Famotidine [Pepcid AC] 20 mg PO DAILY Clopidogrel Bisulfate [Clopidogrel] 75 mg PO EVENING MEAL Insulin Glargine,Hum.rec.anlog [Basaglar Cecilypen U-100] 28 unit SQ HS cilostazoL [Cilostazol] 50 mg PO BID Oxycodone HCl 5 mg PO Q6H PRN PRN PRN Reason: Pain Ondansetron ODT 4 MG [Zofran Odt 4 mg] 1 tab SL QID PRN PRN PRN Reason: Nausea Magnesium Oxide [Magnesium] 400 mg PO EVENING MEAL Amlodipine Besylate/Benazepril [Amlodipine-Benazepril 10-20 mg] 1 tab PO DAILY Follow up with: CHANDLER ALMONTE MD [Primary Care Provider] -
[2023-06-18] MEDS: PLAVIX Tablet PO SCH (21:19)
[2023-06-18] MEDS: DESYREL 50 MG PO SCH (21:19)
[2023-06-19 04:46] LABS: Hematocrit 26.9 % (35-47); Hemoglobin 9.6 g/dL (12.0-16.0); Mean Corpuscular Hemoglobin 29.3 pg (26-32); Mean Corpuscular Hgb Concent. 35.7 g/dL (32-36); Mean Platelet Volume 9.6 fL (7.5-11.0); Platelet Count 330 x10^3/uL (150-450); Red Blood Count 3.28 x10^6/uL (4.1-5.4); Red Cell Distribution Width 13.2 % (11.5-14.0); White Blood Count 8.6 x10^3/uL (4.0-10.5)
[2023-06-19 05:36] LABS: ANION GAP 10.5 MEQ/L (5-15); BILIRUBIN,TOTAL 0.7 mg/dL (0.2-1.3); Calcium 8.4 mg/dL (8.4-10.2); Creatinine 1 3.09 mg/dL (0.52-1.04); EST GLOMERULAR FILTRATION RATE 14.5 ML/MIN; Potassium 3.1 mmol/L (3.5-5.1); Total Protein 6.1 g/dL (6.3-8.2)
[2023-06-19] MEDS: POTASSIUM CHLORIDE 20 mEq IN WATER 100ML 100 ML IV SCH (07:38)
[2023-06-19] MEDS: Dextrose 5%-NS IV Solution 1000 ML 1,000 ML IV SCH (07:38)
--- NOTE | 2023-06-19 09:32 | PCM.DS ---
Discharge Summary Date of Admission: 06/17/23 23:08 Date of Discharge: 06/18/23 Admitting Physician: PASCUAL SOLITARIO MD Primary Care Provider: CHANDLER ALMONTE MD Allergies Allergies Sulfa (Sulfonamide Antibiotics) Allergy (Verified 06/17/23 19:13) Hospital Summary - Hospital Course Hospital Course: 06/17/24 Ms. CRONIN is a 82 year old female with a past medical history significant for hypertension, hyperlipidemia and diabetes with recent admission for abdominal pain status post ERCP 06/07/23 at where she was diagnosed with cholangitis and treated with antibiotics/drain. She presented to the ER after she had noticed decreasing drainage and was worried about dehydration as she was not eating/drinking much. Upon arrival, she was found to have an elevated creatinine of 4.0 associated with sodium of 128 and bicarb 10. She was given IVFs and recommended for admission. She is resting in bed, awake/alert. No fever or chills. No chest pain or shortness of breath. No nausea, vomiting or diarrhea. No dysuria, hematuria or foamy urine. No recent NSAIDs or contrast exposure. Bicarb gtt and antibiotics started. She has no c/o pain. She is not in any distress. She denies CP, SOB< abd. pain, N/V/D. 06/19/23 Pt resting in bed. She has no c/o pain. She was to transfer yesterday but a bed at did not open. Plan is for pt to d/c today. Pt is currently NPO. Bicarb gtt stopped at Co2 27. Sodium 1225 D5NS started. K+ 3.1 and replaced. Continue antibiotics for acute choley with recent cholangitis with drain placed at [facility]. Pt also has UTI and UC pending. Drain is currently draining thick brown foul smelling output. Pt denies CP, SOB, abd. pain, N/V/D. - Vitals & Intake/Output Vital Signs: Vital Signs Temperature 97.1 F 06/19/23 07:57 Pulse Rate 71 06/19/23 07:57 Respiratory Rate 18 06/19/23 07:57 Blood Pressure 114/56 06/19/23 07:57 O2 Sat by Pulse Oximetry 96 06/19/23 07:57 Intake & Output: Intake & Output 06/16/23 06/17/23 06/18/2324 11:59 11:59 11:59 11:59 Intake Total 647 2254 Output Total 250 275 Balance 397 1979 Weight 76.6 kg - Lab Result Diagrams: 06/19/23 04:36 06/19/23 04:36 Lab Results-Last 24 Hrs: Lab Results-Last 24 Hours 06/18/23 06/18/23 06/18/23 Range/Units 11:45 16:23 23:56 WBC (4.0-10.5) x10^3/uL RBC (4.1-5.4) x10^6/uL Hgb (12.0-16.0) g/dL Hct (35-47) % MCV (78-100) fL MCH (26-32) pg MCHC (32-36) g/dL RDW (11.5-14.0) % Plt Count (150-450) x10^3/uL MPV (7.5-11.0) fL Sodium (135-145) mmol/L Potassium (3.5-5.1) mmol/L Chloride (98-107) mmol/L Carbon Dioxide (22-30) mmol/L Anion Gap (5-15) MEQ/L BUN (7-17) mg/dL Creatinine (0.52-1.04) mg/dL Estimated GFR ML/MIN Glucose (74-106) mg/dL POC Glucometer 118 H 139 H 106 (74 to 106) mg/dL Calcium (8.4-10.2) mg/dL Magnesium (1.6-2.3) mg/dL Total Bilirubin (0.2-1.3) mg/dL AST (14-36) U/L ALT (0-35) U/L Alkaline Phosphatase (38-126) U/L Serum Total Protein (6.3-8.2) g/dL Albumin (3.5-5.0) g/dL 06/19/23 06/19/23 06/19/23 Range/Units 04:36 04:36 04:36 WBC 8.6 (4.0-10.5) x10^3/uL RBC 3.28 L (4.1-5.4) x10^6/uL Hgb 9.6 L (12.0-16.0) g/dL Hct 26.9 L (35-47) % MCV 82.0 (78-100) fL MCH 29.3 (26-32) pg MCHC 35.7 (32-36) g/dL RDW 13.2 (11.5-14.0) % Plt Count 330 (150-450) x10^3/uL MPV 9.6 (7.5-11.0) fL Sodium 128 L (135-145) mmol/L Potassium 3.1 L (3.5-5.1) mmol/L Chloride 94 L (98-107) mmol/L Carbon Dioxide 27 (22-30) mmol/L Anion Gap 10.5 (5-15) MEQ/L BUN 59 H (7-17) mg/dL Creatinine 3.09 H (0.52-1.04) mg/dL Estimated GFR 14.5 ML/MIN Glucose 113 H (74-106) mg/dL POC Glucometer (74 to 106) mg/dL Calcium 8.4 (8.4-10.2) mg/dL Magnesium 2.0 (1.6-2.3) mg/dL Total Bilirubin 0.70 (0.2-1.3) mg/dL AST 22 (14-36) U/L ALT 23 (0-35) U/L Alkaline Phosphatase 128 H (38-126) U/L Serum Total Protein 6.1 L (6.3-8.2) g/dL Albumin 3.0 L (3.5-5.0) g/dL 04/25/24 Range/Units 06:21 WBC (4.0-10.5) x10^3/uL RBC (4.1-5.4) x10^6/uL Hgb (12.0-16.0) g/dL Hct (35-47) % MCV (78-100) fL MCH (26-32) pg MCHC (32-36) g/dL RDW (11.5-14.0) % Plt Count (150-450) x10^3/uL MPV (7.5-11.0) fL Sodium (135-145) mmol/L Potassium (3.5-5.1) mmol/L Chloride (98-107) mmol/L Carbon Dioxide (22-30) mmol/L Anion Gap (5-15) MEQ/L BUN (7-17) mg/dL Creatinine (0.52-1.04) mg/dL Estimated GFR ML/MIN Glucose (74-106) mg/dL POC Glucometer 113 H (74 to 106) mg/dL Calcium (8.4-10.2) mg/dL Magnesium (1.6-2.3) mg/dL Total Bilirubin (0.2-1.3) mg/dL AST (14-36) U/L ALT (0-35) U/L Alkaline Phosphatase (38-126) U/L Serum Total Protein (6.3-8.2) g/dL Albumin (3.5-5.0) g/dL Micro Results-Entire Visit: Microbiology 06/17/23 04:50 Urine Culture - Preliminary Clean Catch Midstream GRAM NEGATIVE ID AND SENSITIVITY PENDING Accuchecks Date 06/18/23 Date 06/18/23 Time 17:52 Time 12:03 - Procedures and Test Procedures and Tests throughout Hospitalization: Therapy Orders & Screens 06/18/23 00:20 OT Screen per Nursing Assess ONCE Comment: Protocol Order Physician Instructions: Greater than 3 points order OT Admission Screening Reason For Exam: Triggered on Admission Diagnosis: Acute renal injury, metabolic acidosis, dehydration Open Wound/Cellutlitis/Pressure Ulcers: Yes Acute Fx/ORIF/Change in wt bearing status: No Severe MUSCULOSKELETAL pain: No ADL Dysfunction: No Acute CVA w/Hemiparesis/Hemiplegia: No Decreased Functional Mobility/Strength: No Sprain/Strain: No Acute Post-op Mobility Dysfunction: No Total Points: 5 PT Screen per Nursing Assess ONCE Comment: Protocol Order Physician Instructions: Greater than 3 points order PT Admission Screenin Reason For Exam: Triggered on Admission Diagnosis: Acute renal injury, metabolic acidosis, dehydration Open Wound/Cellutlitis/Pressure Ulcers: Yes Acute Fx/ORIF/Change in wt bearing status: No Severe MUSCULOSKELETAL pain: No ADL Dysfunction: No Acute CVA w/Hemiparesis/Hemiplegia: No Decreased Functional Mobility/Strength: No Sprain/Strain: No Acute Post-op Mobility Dysfunction: No Total Points: 5 ST Screen per Nursing Assess ONCE Comment: Protocol Order Physician Instructions: Greater than [address] Admission Screening Reason For Exam: Triggered on Admission Diagnosis: Acute renal injury, metabolic acidosis, dehydration CVA/Dyshpagia/Aphasia: No Cognitive Deficits: No Dehydration/Nutrition Deficit: Yes Reflux: No Oral-Motor Difficulties: No Pneumonia: No Shelter Resident: No Total Points: 5 Discharge Exam General Appearance: no apparent distress, alert Neurologic Exam: alert, oriented x 3, cooperative, normal mood/affect, nml cerebellar function, sensation nml, No motor deficits Eye Exam: PERRL, EOMI, eyes nml inspection Ears, Nose, Throat Exam: normal ENT inspection, pharynx normal, moist mucous membranes Neck Exam: normal inspection, non-tender, supple, full range of motion Respiratory Exam: normal breath sounds, lungs clear, No respiratory distress Cardiovascular Exam: regular rate/rhythm, normal heart sounds Gastrointestinal/Abdomen Exam: soft, other (drain from abd. with thick brown foul smelling output), No tenderness, No mass Pelvic Exam: deferred Rectal Exam: deferred Back Exam: normal inspection, normal range of motion, No CVA tenderness, No vertebral tenderness Extremity Exam: normal inspection, normal range of motion Skin Exam: warm, dry, pale Wound Assessment: Skin/Wound Assessment Wound/Incision Assessment Start: 06/18/23 00:20 Text: Status: Active Freq: Q6H Protocol: Document 06/19/23 07:26 ALMITA (Rec: 06/19/23 07:31 ALMITA [id number]) Wound/Incision Assessment Right Abdomen Wound Assessment Shift Assessment Wound Type Incision Wound Stage Non Pressure Wound Dressing Status Dry & Intact Drainage Amount None Drainage Odor None/Absent Comment GALLBLADDER DRAIN IN PLACE, DRESSING IS CLEAN, DRY AND INTACT Right Lower Abdomen Drainage Description Green Odor Mild Odor Comment GALLBLADDER DRAIN, SMALL AMOUNT NOTED IN BAG AT THIS TIME Final Diagnosis/Problem List - Final Discharge Diagnosis/Problem (1) Acute renal injury Current Visit: Yes Status: Acute Code(s): N17.9 - ACUTE KIDNEY FAILURE, UNSPECIFIED (2) Hypertensive chronic kidney disease with stage 1 through stage 4 chronic kidney disease, or unspecified chronic kidney disease Current Visit: Yes Status: Acute Code(s): I12.9 - HYPERTENSIVE CHRONIC KIDNEY DISEASE W STG 1-4/UNSP CHR KDNY (3) Hyponatremia Current Visit: Yes Status: Acute Code(s): E87.1 - HYPO-OSMOLALITY AND HYPONATREMIA (4) Metabolic acidosis Current Visit: Yes Status: Acute Code(s): E87.20 - ACIDOSIS, UNSPECIFIED (5) Acute cholecystitis Current Visit: No Status: Acute Assessment & Plan: (1) Acute renal injury Current Visit: Yes Status: Acute Assessment & Plan: Likely from prerenal azotemia in setting of thiazide diuretic/CHRISTINE --> ATN but need to rule out AIN from recent antibiotics 1. IVFs- stopped 2. Check urine lytes, urine eos 3. Hold HCTZ, Benazepril 4. Follow I/Os 5. Watch electrolytes, creatinine closely - no need for dialysis yet, hopefully can avoid 06/18 - labs slowly improving, creat 3.09 - Start IVF, stop bicarb gtt Code(s): N17.9 - ACUTE KIDNEY FAILURE, UNSPECIFIED (2) Hypertensive chronic kidney disease with stage 1 through stage 4 chronic kidney disease, or unspecified chronic kidney disease Current Visit: Yes Status: Acute Assessment & Plan: Under fair control - Continue bp meds but hold CHRISTINE/HCTZ - Monitor blood pressure readings Code(s): I12.9 - HYPERTENSIVE CHRONIC KIDNEY DISEASE W STG 1-4/UNSP CHR KDNY (3) Hyponatremia Current Visit: Yes Status: Acute Assessment & Plan: Likely from hypovolemia +/- thiazide diuretics 1. Isotonic IVFs 2. Hold HCTZ 3. Check urine lytes, urine osmo 4. Monitor electrolytes closely 06/18 - Na+ 128- Started D5NS at 150 ml/hr Code(s): E87.1 - HYPO-OSMOLALITY AND HYPONATREMIA (4) Metabolic acidosis Current Visit: Yes Status: Acute Assessment & Plan: Secondary to HCICHO 1. Bicarb drip 2. Monitor ABG prn 3. Watch kidney function closely 06/18 - resolved - bicarb gtt stopped Code(s): E87.20 - ACIDOSIS, UNSPECIFIED (5) Acute cholecystitis Current Visit: No Status: Acute Assessment & Plan: Status post antibiotics for acute cholangitis 1. Will need transfer to for further eval 2. Continue antibiotics 3. Monitor drainage 4. Unasyn started IV Code(s): K81.0 - ACUTE CHOLECYSTITIS Code(s): K81.0 - ACUTE CHOLECYSTITIS - Discharge Discharge Date: 06/19/23 Disposition: DC TO OTHER HOSP Condition: Stable Prescriptions: Continue Isosorbide Mononitrate [Isosorbide Mononitrate ER] 30 mg PO DAILY Hydrochlorothiazide 25 mg [hydroDIURIL 25 MG] 25 mg PO DAILY Metoprolol Tartrate [Lopressor] 100 mg PO BID Atorvastatin Calcium 40 mg PO DAILY Sertraline HCl [Zoloft] 25 mg PO DAILY Levothyroxine Sodium 75 Mcg [Synthroid 75 Mcg] 75 mcg PO DAILY Trazodone HCl 50 mg [Desyrel 50 mg] 50 mg PO HS Famotidine [Pepcid AC] 20 mg PO DAILY Clopidogrel Bisulfate [Clopidogrel] 75 mg PO EVENING MEAL Insulin Glargine,Hum.rec.anlog [Basaglar Kwikpen U-100] 28 unit SQ HS cilostazoL [Cilostazol] 50 mg PO BID Oxycodone HCl 5 mg PO Q6H PRN PRN PRN Reason: Pain Ondansetron ODT 4 MG [Zofran Odt 4 mg] 1 tab SL QID PRN PRN PRN Reason: Nausea Magnesium Oxide [Magnesium] 400 mg PO EVENING MEAL Amlodipine Besylate/Benazepril [Amlodipine-Benazepril 10-20 mg] 1 tab PO DAILY Follow up with: CHANDLER ALMONTE MD [Primary Care Provider] -
[2023-06-19] MEDS: Zofran 4 MG/2 ML VIAL IV PRN (10:59)
[2023-06-20 04:41] LABS: Hematocrit 29.1 % (35-47); Mean Cell Volume 85.3 fL (78-100); Mean Corpuscular Hemoglobin 29.3 pg (26-32); Mean Corpuscular Hgb Concent. 34.4 g/dL (32-36); Mean Platelet Volume 9.6 fL (7.5-11.0); Platelet Count 279 x10^3/uL (150-450); Red Blood Count 3.41 x10^6/uL (4.1-5.4); Red Cell Distribution Width 13.2 % (11.5-14.0); White Blood Count 5.1 x10^3/uL (4.0-10.5)
[2023-06-20 05:05] LABS: ALBUMIN 2.7 g/dL (3.5-5.0); ANION GAP 10.5 MEQ/L (5-15); BILIRUBIN,TOTAL 0.7 mg/dL (0.2-1.3); Calcium 8.5 mg/dL (8.4-10.2); Creatinine 1 2.16 mg/dL (0.52-1.04); EST GLOMERULAR FILTRATION RATE 22.3 ML/MIN; Potassium 4.1 mmol/L (3.5-5.1); Total Protein 5.5 g/dL (6.3-8.2)
[2023-06-20] MEDS: Sodium Chloride 0.9% 1000 ML 1,000 ML IV SCH (09:41)
--- NOTE | 2023-06-20 09:49 | PCM.DS ---
Discharge Summary Date of Admission: 06/17/23 23:08 Date of Discharge: 06/20/23 Admitting Physician: PASCUAL SOLITARIO MD Primary Care Provider: CHANDLER ALMONTE MD Allergies Allergies Sulfa (Sulfonamide Antibiotics) Allergy (Verified 06/17/23 19:13) Hospital Summary - Hospital Course Hospital Course: 06/17/24 Ms. CRONIN is a 82 year old female with a past medical history significant for hypertension, hyperlipidemia and diabetes with recent admission for abdominal pain status post ERCP 06/07/23 at where she was diagnosed with cholangitis and treated with antibiotics/drain. She presented to the ER after she had noticed decreasing drainage and was worried about dehydration as she was not eating/drinking much. Upon arrival, she was found to have an elevated creatinine of 4.0 associated with sodium of 128 and bicarb 10. She was given IVFs and recommended for admission. She is resting in bed, awake/alert. No fever or chills. No chest pain or shortness of breath. No nausea, vomiting or diarrhea. No dysuria, hematuria or foamy urine. No recent NSAIDs or contrast exposure. Bicarb gtt and antibiotics started. She has no c/o pain. She is not in any distress. She denies CP, SOB< abd. pain, N/V/D. 06/19/23 Pt resting in bed. She has no c/o pain. She was to transfer yesterday but a bed at did not open. Plan is for pt to d/c today. Pt is currently NPO. Bicarb gtt stopped at Co2 27. Sodium 1225 D5NS started. K+ 3.1 and replaced. Continue antibiotics for acute choley with recent cholangitis with drain placed at [facility]. Pt also has UTI and UC pending. Drain is currently draining thick brown foul smelling output. Pt denies CP, SOB, abd. pain, N/V/D. 06/20/23 Pt resting in bed. She is feeling better and has better color today. She is producing more urine and CHICHO improving. However, still not at baseline. Na+ improved, will IVF to NS. UC came back + for Klebsiella, will continue current antibiotic. She is still awaiting a bed at and it was thought she was to leave the previous 2 days. Hopefully a bed will open today. She denies CP, S OB, abd. pain, N/V/D. - Vitals & Intake/Output Vital Signs: Vital Signs Temperature 96.5 F 06/20/23 06:55 Pulse Rate 74 06/20/23 06:55 Respiratory Rate 16 06/20/23 06:55 Blood Pressure 155/67 06/20/23 06:55 O2 Sat by Pulse Oximetry 94 L 06/20/23 06:55 Intake & Output: Intake & Output 06/17/23 06/18/23 06/19/23 06/20/23 11:59 11:59 11:59 11:59 Intake Total 647 2254 3181 Output Total 412 114 1606 Balance 397 1978 2080 Weight 76.6 kg - Lab Result Diagrams: 06/20/23 04:23 06/20/23 04:23 Lab Results-Last 24 Hrs: Lab Results-Last 24 Hours 06/17/23 06/19/23 06/19/23 Range/Units 04:50 11:50 17:52 WBC (4.0-10.5) x10^3/uL RBC (4.1-5.4) x10^6/uL Hgb (12.0-16.0) g/dL Hct (35-47) % MCV (78-100) fL MCH (26-32) pg MCHC (32-36) g/dL RDW (11.5-14.0) % Plt Count (150-450) x10^3/uL MPV (7.5-11.0) fL Sodium (135-145) mmol/L Potassium (3.5-5.1) mmol/L Chloride (98-107) mmol/L Carbon Dioxide (22-30) mmol/L Anion Gap (5-15) MEQ/L BUN (7-17) mg/dL Creatinine (0.52-1.04) mg/dL Estimated GFR ML/MIN Glucose (74-106) mg/dL POC Glucometer 108 H 131 H (74 to 106) mg/dL Calcium (8.4-10.2) mg/dL Magnesium (1.6-2.3) mg/dL Total Bilirubin (0.2-1.3) mg/dL AST (14-36) U/L ALT (0-35) U/L Alkaline Phosphatase (38-126) U/L Serum Total Protein (6.3-8.2) g/dL Albumin (3.5-5.0) g/dL Urine Osmolality 296 (.) mOsmol/kg 06/19/23 06/19/23 06/20/23 Range/Units 19:30 23:57 04:23 WBC (4.0-10.5) x10^3/uL RBC (4.1-5.4) x10^6/uL Hgb (12.0-16.0) g/dL Hct (35-47) % MCV (78-100) fL MCH (26-32) pg MCHC (32-36) g/dL RDW (11.5-14.0) % Plt Count (150-450) x10^3/uL MPV (7.5-11.0) fL Sodium (135-145) mmol/L Potassium 4.3 D (3.5-5.1) mmol/L Chloride (98-107) mmol/L Carbon Dioxide (22-30) mmol/L Anion Gap (5-15) MEQ/L BUN (7-17) mg/dL Creatinine (0.52-1.04) mg/dL Estimated GFR ML/MIN Glucose (74-106) mg/dL POC Glucometer 147 H (74 to 106) mg/dL Calcium (8.4-10.2) mg/dL Magnesium 2.1 (1.6-2.3) mg/dL Total Bilirubin (0.2-1.3) mg/dL AST (14-36) U/L ALT (0-35) U/L Alkaline Phosphatase (38-126) U/L Serum Total Protein (6.3-8.2) g/dL Albumin (3.5-5.0) g/dL Urine Osmolality (.) mOsmol/kg 06/20/23 06/20/23 06/20/23 Range/Units 04:23 04:23 06:26 WBC 5.1 (4.0-10.5) x10^3/uL RBC 3.41 L (4.1-5.4) x10^6/uL Hgb 10.0 L (12.0-16.0) g/dL Hct 29.1 L (35-47) % MCV 85.3 (78-100) fL MCH 29.3 (26-32) pg MCHC 34.4 (32-36) g/dL RDW 13.2 (11.5-14.0) % Plt Count 279 (150-450) x10^3/uL MPV 9.6 (7.5-11.0) fL Sodium 138 D (135-145) mmol/L Potassium 4.1 (3.5-5.1) mmol/L Chloride 107 D (98-107) mmol/L Carbon Dioxide 24 (22-30) mmol/L Anion Gap 10.5 (5-15) MEQ/L BUN 39 H (7-17) mg/dL Creatinine 2.16 H (0.52-1.04) mg/dL Estimated GFR 22.3 ML/MIN Glucose 178 H (74-106) mg/dL POC Glucometer 156 H (74 to 106) mg/dL Calcium 8.5 (8.4-10.2) mg/dL Magnesium (1.6-2.3) mg/dL Total Bilirubin 0.70 (0.2-1.3) mg/dL AST 21 (14-36) U/L ALT 21 (0-35) U/L Alkaline Phosphatase 132 H (38-126) U/L Serum Total Protein 5.5 L (6.3-8.2) g/dL Albumin 2.7 L (3.5-5.0) g/dL Urine Osmolality (.) mOsmol/kg Micro Results-Entire Visit: Microbiology 06/20/23 Unknown Stool Culture Result 1 - Final Stool Not Reportable Stool Culture Result 2 - Final Not Reportable Stool Culture Result 3 - Final Not Reportable Stool Culture Result 4 - Final Not Reportable Stool Culture Organism Suscept - Final Not Reportable Campylobacter Result 1 - Final Not Reportable Campylobacter Result 2 - Final Not Reportable Campylobactor Result 3 - Final Not Reportable Campylobacter Result 4 - Final Not Reportable Campylobactor Susceptibility - Final Not Reportable C. difficile Toxin B Result 1 - Final Not Reportable C. difficile Toxin B Result 2 - Final Not Reportable C. difficile Toxin B Result 3 - Final Not Reportable C. difficile Toxin B Result 4 - Final Not Reportable Antimicrobic Susceptibility - Final Not Reportable 06/17/23 04:50 Urine Culture - Final Clean Catch Midstream Klebsiella Pneumoniae Accuchecks Date 06/20/23 Date 06/20/23 Date 06/19/23 Time 06:55 Time 00:00 - Procedures and Test Procedures and Tests throughout Hospitalization: Therapy Orders & Screens 06/18/23 00:20 OT Screen per Nursing Assess ONCE Comment: Protocol Order Physician Instructions: Greater than 3 points order OT Admission Screening Reason For Exam: Triggered on Admission Diagnosis: Acute renal injury, metabolic acidosis, dehydration Open Wound/Cellutlitis/Pressure Ulcers: Yes Acute Fx/ORIF/Change in wt bearing status: No Severe MUSCULOSKELETAL pain: No ADL Dysfunction: No Acute CVA w/Hemiparesis/Hemiplegia: No Decreased Functional Mobility/Strength: No Sprain/Strain: No Acute Post-op Mobility Dysfunction: No Total Points: 5 PT Screen per Nursing Assess ONCE Comment: Protocol Order Physician Instructions: Greater than 3 points order PT Admission Screenin Reason For Exam: Triggered on Admission Diagnosis: Acute renal injury, metabolic acidosis, dehydration Open Wound/Cellutlitis/Pressure Ulcers: Yes Acute Fx/ORIF/Change in wt bearing status: No Severe MUSCULOSKELETAL pain: No ADL Dysfunction: No Acute CVA w/Hemiparesis/Hemiplegia: No Decreased Functional Mobility/Strength: No Sprain/Strain: No Acute Post-op Mobility Dysfunction: No Total Points: 5 ST Screen per Nursing Assess ONCE Comment: Protocol Order Physician Instructions: Greater than [address] Admission Screening Reason For Exam: Triggered on Admission Diagnosis: Acute renal injury, metabolic acidosis, dehydration CVA/Dyshpagia/Aphasia: No Cognitive Deficits: No Dehydration/Nutrition Deficit: Yes Reflux: No Oral-Motor Difficulties: No Pneumonia: No Shelter Resident: No Total Points: 5 Discharge Exam General Appearance: no apparent distress, alert Neurologic Exam: alert, oriented x 3, cooperative, normal mood/affect, nml cerebellar function, sensation nml, No motor deficits Eye Exam: PERRL, EOMI, eyes nml inspection Ears, Nose, Throat Exam: normal ENT inspection, pharynx normal, moist mucous membranes Neck Exam: normal inspection, non-tender, supple, full range of motion Respiratory Exam: normal breath sounds, lungs clear, No respiratory distress Cardiovascular Exam: regular rate/rhythm, normal heart sounds Gastrointestinal/Abdomen Exam: soft, No tenderness, No mass Pelvic Exam: deferred Rectal Exam: deferred Back Exam: normal inspection, normal range of motion, No CVA tenderness, No vertebral tenderness Extremity Exam: normal inspection, normal range of motion Skin Exam: normal color, warm, dry Wound Assessment: Skin/Wound Assessment Wound/Incision Assessment Start: 06/18/23 00:20 Text: Status: Active Freq: Q6H Protocol: Document 06/20/23 02:00 (Rec: 06/20/23 02:06 [id number]) Wound/Incision Assessment Right Abdomen Wound Assessment Shift Assessment Wound Type Incision Wound Stage Non Pressure Wound Dressing Status Changed Drainage Amount None Drainage Odor None/Absent Comment gallbladder drain in place Right Lower Abdomen Drainage Description Brown Comment gallbladder drain Wound Photo Photo Taken No Final Diagnosis/Problem List - Final Discharge Diagnosis/Problem (1) Acute renal injury Current Visit: Yes Status: Acute Code(s): N17.9 - ACUTE KIDNEY FAILURE, UNSPECIFIED (2) Hypertensive chronic kidney disease with stage 1 through stage 4 chronic kidney disease, or unspecified chronic kidney disease Current Visit: Yes Status: Acute Code(s): I12.9 - HYPERTENSIVE CHRONIC KIDNEY DISEASE W STG 1-4/UNSP CHR KDNY (3) Hyponatremia Current Visit: Yes Status: Acute Code(s): E87.1 - HYPO-OSMOLALITY AND HYPONATREMIA (4) Metabolic acidosis Current Visit: Yes Status: Acute Code(s): E87.20 - ACIDOSIS, UNSPECIFIED (5) Acute cholecystitis Current Visit: No Status: Acute Assessment & Plan: (1) Acute renal injury Current Visit: Yes Status: Acute Assessment & Plan: Likely from prerenal azotemia in setting of thiazide diuretic/CHRISTINE --> ATN but need to rule out AIN from recent antibiotics 1. IVFs- stopped 2. Check urine lytes, urine eos 3. Hold HCTZ, Benazepril 4. Follow I/Os 5. Watch electrolytes, creatinine closely - no need for dialysis yet, hopefully can avoid 06/18 - labs slowly improving, creat 3.09 - Start IVF, stop bicarb gtt 06/19 - Creat 2.16- improved - NS started at 75ml/hr - urine OP improving Code(s): N17.9 - ACUTE KIDNEY FAILURE, UNSPECIFIED (2) Hypertensive chronic kidney disease with stage 1 through stage 4 chronic kidney disease, or unspecified chronic kidney disease Current Visit: Yes Status: Acute Assessment & Plan: Under fair control - Continue bp meds but hold CHRISTINE/HCTZ - Monitor blood pressure readings Code(s): I12.9 - HYPERTENSIVE CHRONIC KIDNEY DISEASE W STG 1-4/UNSP CHR KDNY (3) Hyponatremia Current Visit: Yes Status: Acute Assessment & Plan: Likely from hypovolemia +/- thiazide diuretics 1. Isotonic IVFs 2. Hold HCTZ 3. Check urine lytes, urine osmo 4. Monitor electrolytes closely 06/18 - Na+ 128- Started D5NS at 150 ml/hr 06/19 - Na+ 138 - D5NS stopped Code(s): E87.1 - HYPO-OSMOLALITY AND HYPONATREMIA (4) Metabolic acidosis Current Visit: Yes Status: Acute Assessment & Plan: Secondary to CHICHO 1. Bicarb drip 2. Monitor ABG prn 3. Watch kidney function closely 06/18 - resolved - bicarb gtt stopped Code(s): E87.20 - ACIDOSIS, UNSPECIFIED (5) Acute cholecystitis Current Visit: No Status: Acute Assessment & Plan: Status post antibiotics for acute cholangitis 1. Will need transfer to for further eval 2. Continue antibiotics 3. Monitor drainage 4. Unasyn started IV Code(s): K81.0 - ACUTE CHOLECYSTITIS (6) UTI (urinary tract infection) Current Visit: Yes Status: Acute Assessment & Plan: - UC + for Klebsiella- Continue Unasyn- sensitivity shows pansensitive - IVF Code(s): N39.0 - URINARY TRACT INFECTION, SITE NOT SPECIFIED - Discharge Disposition: DC TO OTHER HOSP Condition: Stable Prescriptions: Continue Isosorbide Mononitrate [Isosorbide Mononitrate ER] 30 mg PO DAILY Hydrochlorothiazide 25 mg [hydroDIURIL 25 MG] 25 mg PO DAILY Metoprolol Tartrate [Lopressor] 100 mg PO BID Atorvastatin Calcium 40 mg PO DAILY Sertraline HCl [Zoloft] 25 mg PO DAILY Levothyroxine Sodium 75 Mcg [Synthroid 75 Mcg] 75 mcg PO DAILY Trazodone HCl 50 mg [Desyrel 50 mg] 50 mg PO HS Famotidine [Pepcid AC] 20 mg PO DAILY Clopidogrel Bisulfate [Clopidogrel] 75 mg PO EVENING MEAL Insulin Glargine,Hum.rec.anlog [Basaglar Kwikpen U-100] 28 unit SQ HS cilostazoL [Cilostazol] 50 mg PO BID Oxycodone HCl 5 mg PO Q6H PRN PRN PRN Reason: Pain Ondansetron ODT 4 MG [Zofran Odt 4 mg] 1 tab SL QID PRN PRN PRN Reason: Nausea Magnesium Oxide [Magnesium] 400 mg PO EVENING MEAL Amlodipine Besylate/Benazepril [Amlodipine-Benazepril 10-20 mg] 1 tab PO DAILY Follow up with: CHANDLER ALMONTE MD [Primary Care Provider] -
[2023-06-20] MEDS: HUMALOG SQ PRN (21:13)
[2023-06-21 05:42] LABS: Hematocrit 31.7 % (35-47); Hemoglobin 10.6 g/dL (12.0-16.0); Mean Cell Volume 87.1 fL (78-100); Mean Corpuscular Hemoglobin 29.1 pg (26-32); Mean Corpuscular Hgb Concent. 33.4 g/dL (32-36); Mean Platelet Volume 9.6 fL (7.5-11.0); Platelet Count 295 x10^3/uL (150-450); Red Blood Count 3.64 x10^6/uL (4.1-5.4); Red Cell Distribution Width 13.3 % (11.5-14.0); White Blood Count 5.6 x10^3/uL (4.0-10.5)
[2023-06-21 05:57] LABS: ALBUMIN 2.9 g/dL (3.5-5.0); ANION GAP 10.6 MEQ/L (5-15); BILIRUBIN,TOTAL 0.6 mg/dL (0.2-1.3); Calcium 8.5 mg/dL (8.4-10.2); Creatinine 1 1.45 mg/dL (0.52-1.04); Potassium 4.5 mmol/L (3.5-5.1); Total Protein 5.7 g/dL (6.3-8.2)
[2023-06-21 11:01] LABS: 027 TOX PROD PRESUMPTIVE NEGATIVE (NEGATIVE); TOXIGENIC C. DIFF ORG NEGATIVE (NEGATIVE)
[2023-06-21 11:57] VITALS: RESP 18
--- NOTE | 2023-06-21 12:08 | PCM.NOTE ---
Date and Time: 06/21/23 1157 Subjective Assessment: 06/17/24 Ms. CRONIN is a 82 year old female with a past medical history significant for hypertension, hyperlipidemia and diabetes with recent admission for abdominal pain status post ERCP 06/07/23 at where she was diagnosed with cholangitis and treated with antibiotics/drain. She presented to the ER after she had noticed decreasing drainage and was worried about dehydration as she was not eating/drinking much. Upon arrival, she was found to have an elevated creatinine of 4.0 associated with sodium of 128 and bicarb 10. She was given IVFs and recommended for admission. She is resting in bed, awake/alert. No fever or chills. No chest pain or shortness of breath. No nausea, vomiting or diarrhea. No dysuria, hematuria or foamy urine. No recent NSAIDs or contrast exposure. Bicarb gtt and antibiotics started. She has no c/o pain. She is not in any distress. She denies CP, SOB< abd. pain, N/V/D. 06/19/23 Pt resting in bed. She has no c/o pain. She was to transfer yesterday but a bed at did not open. Plan is for pt to d/c today. Pt is currently NPO. Bicarb gtt stopped at Co2 27. Sodium 1225 D5NS started. K+ 3.1 and replaced. Continue antibiotics for acute choley with recent cholangitis with drain placed at [facility]. Pt also has UTI and UC pending. Drain is currently draining thick brown foul smelling output. Pt denies CP, SOB, abd. pain, N/V/D. 06/20/23 Pt resting in bed. She is feeling better and has better color today. She is producing more urine and CHICHO improving. However, still not at baseline. Na+ improved, will change IVF to NS. UC came back + for Klebsiella, will continue current antibiotic. She is still awaiting a bed at and it was thought she was to leave the previous 2 days. Hopefully a bed will open today. She denies CP, SOB, abd. pain, N/V/D. 06/21/23 Pt sitting up in bed. She does report some nausea today. did not have a bed open again last night. Labs are improving and she is having drainage from drain. Drainage amount charted under other I&O. Continue antibiotics. and IVF. CHICHO is improving. May d/c to home tomorrow if she is not transferred today. She can then f/u OP as scheduled. She denies CP, SOB, Abd. pain, V/D. - Review of Systems Constitutional: No Fever, No Chills Eyes: No Symptoms Ears, Nose, & Throat: No Symptoms Respiratory: No Cough, No Short Of Breath Cardiac: No Chest Pain, No Edema, No Syncope Abdominal/Gastrointestinal: Nausea, No Abdominal Pain, No Vomiting, No Diarrhea Genitourinary Symptoms: No Dysuria Musculoskeletal: No Back Pain, No Neck Pain Skin: No Rash Neurological: No Dizziness, No Focal Weakness, No Sensory Changes Psychological: No Symptoms Endocrine: No Symptoms Hematologic/Lymphatic: No Symptoms Immunological/Allergic: No Symptoms Objective Exam General Appearance: no apparent distress, alert Neurologic Exam: alert, oriented x 3, cooperative, normal mood/affect, nml cerebellar function, sensation nml, No motor deficits Skin Exam: normal color, warm, dry Wound Assessment: Skin/Wound Assessment Wound/Incision Assessment Start: 06/18/23 00:20 Text: Status: Active Freq: Q6H Protocol: Document 06/21/23 08:48 JV (Rec: 06/21/23 08:50 JV [id number]) Wound/Incision Assessment Right Abdomen Wound Assessment Shift Assessment Wound Type Incision Wound Stage Non Pressure Wound Dressing Status Dry & Intact Drainage Amount None Right Lower Abdomen Drainage Description Yellow Wound Photo Photo Taken No Eye Exam: PERRL, EOMI, eyes nml inspection Ears, Nose, Throat Exam: normal ENT inspection, pharynx normal, moist mucous membranes Neck Exam: normal inspection, non-tender, supple, full range of motion Respiratory Exam: normal breath sounds, lungs clear, No respiratory distress Cardiovascular Exam: regular rate/rhythm, normal heart sounds Gastrointestinal/Abdomen Exam: soft, No tenderness, No mass Extremity Exam: normal inspection, normal range of motion Back Exam: normal inspection, normal range of motion, No CVA tenderness, No vertebral tenderness Pelvic Exam: deferred Rectal Exam: deferred Objective Data Vital Signs: Vital Signs - 24 hr Temp Pulse Resp BP Pulse Ox 06/21/23 07:34 97.3 F 78 17 152/72 94 L 06/21/23 03:52 97.9 F 87 18 143/61 96 06/20/23 23:36 97.8 F 75 17 137/63 97 06/20/23 19:47 97.6 F 69 16 137/62 96 06/20/23 16:00 97 F 66 21 129/60 99 Pain Assessment - Last Documented Pain Intensity 0 Intake and Output: Intake & Output 06/18/23 06/19/23 06/20/23 06/21/23 11:59 11:59 11:59 11:59 Intake Total 647 2254 3181 4231 Output Total 786 674 9604 1230 Balance 397 1979 2081 3001 Weight 76.6 kg Lab Results: Lab Results-Last 24 Hours 06/20/23 06/20/23 06/21/23 Range/Units 16:06 20:53 05:34 WBC 5.6 (4.0-10.5) x10^3/uL RBC 3.64 L (4.1-5.4) x10^6/uL Hgb 10.6 L (12.0-16.0) g/dL Hct 31.7 L (35-47) % MCV 87.1 (78-100) fL MCH 29.1 (26-32) pg MCHC 33.4 (32-36) g/dL RDW 13.3 (11.5-14.0) % Plt Count 295 (150-450) x10^3/uL MPV 9.6 (7.5-11.0) fL Sodium (135-145) mmol/L Potassium (3.5-5.1) mmol/L Chloride (98-107) mmol/L Carbon Dioxide (22-30) mmol/L Anion Gap (5-15) MEQ/L BUN (7-17) mg/dL Creatinine (0.52-1.04) mg/dL Estimated GFR ML/MIN Glucose (74-106) mg/dL POC Glucometer 136 H 166 H (74 to 106) mg/dL Calcium (8.4-10.2) mg/dL Total Bilirubin (0.2-1.3) mg/dL AST (14-36) U/L ALT (0-35) U/L Alkaline Phosphatase (38-126) U/L Serum Total Protein (6.3-8.2) g/dL Albumin (3.5-5.0) g/dL C. difficile Screen (NEGATIVE) C.difficile 027-NAP1-B1 (NEGATIVE) 06/21/23 06/21/23 06/21/23 Range/Units 05:34 07:07 10:15 WBC (4.0-10.5) x10^3/uL RBC (4.1-5.4) x10^6/uL Hgb (12.0-16.0) g/dL Hct (35-47) % MCV (78-100) fL MCH (26-32) pg MCHC (32-36) g/dL RDW (11.5-14.0) % Plt Count (150-450) x10^3/uL MPV (7.5-11.0) fL Sodium 139 (135-145) mmol/L Potassium 4.5 (3.5-5.1) mmol/L Chloride 108 H (98-107) mmol/L Carbon Dioxide 25 (22-30) mmol/L Anion Gap 10.6 (5-15) MEQ/L BUN 19 H (7-17) mg/dL Creatinine 1.45 H (0.52-1.04) mg/dL Estimated GFR 36.0 ML/MIN Glucose 116 H (74-106) mg/dL POC Glucometer 130 H (74 to 106) mg/dL Calcium 8.5 (8.4-10.2) mg/dL Total Bilirubin 0.60 (0.2-1.3) mg/dL AST 35 (14-36) U/L ALT 33 (0-35) U/L Alkaline Phosphatase 155 H (38-126) U/L Serum Total Protein 5.7 L (6.3-8.2) g/dL Albumin 2.9 L (3.5-5.0) g/dL C. difficile Screen NEGATIVE (NEGATIVE) C.difficile 027-NAP1-B1 PRESUMPTIVE NEGATIVE (NEGATIVE) 06/21/23 Range/Units 11:39 WBC (4.0-10.5) x10^3/uL RBC (4.1-5.4) x10^6/uL Hgb (12.0-16.0) g/dL Hct (35-47) % MCV (78-100) fL MCH (26-32) pg MCHC (32-36) g/dL RDW (11.5-14.0) % Plt Count (150-450) x10^3/uL MPV (7.5-11.0) fL Sodium (135-145) mmol/L Potassium (3.5-5.1) mmol/L Chloride (98-107) mmol/L Carbon Dioxide (22-30) mmol/L Anion Gap (5-15) MEQ/L BUN (7-17) mg/dL Creatinine (0.52-1.04) mg/dL Estimated GFR ML/MIN Glucose (74-106) mg/dL POC Glucometer 154 H (74 to 106) mg/dL Calcium (8.4-10.2) mg/dL Total Bilirubin (0.2-1.3) mg/dL AST (14-36) U/L ALT (0-35) U/L Alkaline Phosphatase (38-126) U/L Serum Total Protein (6.3-8.2) g/dL Albumin (3.5-5.0) g/dL C. difficile Screen (NEGATIVE) C.difficile 027-NAP1-B1 (NEGATIVE) Assessment/Plan (1) Acute renal injury Current Visit: Yes Status: Acute Code(s): N17.9 - ACUTE KIDNEY FAILURE, UNSPECIFIED (2) Hypertensive chronic kidney disease with stage 1 through stage 4 chronic kidney disease, or unspecified chronic kidney disease Current Visit: Yes Status: Acute Code(s): I12.9 - HYPERTENSIVE CHRONIC KIDNEY DISEASE W STG 1-4/UNSP CHR KDNY (3) Hyponatremia Current Visit: Yes Status: Acute Code(s): E87.1 - HYPO-OSMOLALITY AND HYPONATREMIA (4) Metabolic acidosis Current Visit: Yes Status: Acute Code(s): E87.20 - ACIDOSIS, UNSPECIFIED (5) Acute cholecystitis Current Visit: No Status: Acute Code(s): K81.0 - ACUTE CHOLECYSTITIS (6) UTI (urinary tract infection) Current Visit: Yes Status: Acute Assessment & Plan: (1) Acute renal injury Current Visit: Yes Status: Acute Assessment & Plan: Likely from prerenal azotemia in setting of thiazide diuretic/CHRISTINE --> ATN but need to rule out AIN from recent antibiotics 1. IVFs- stopped 2. Check urine lytes, urine eos 3. Hold HCTZ, Benazepril 4. Follow I/Os 5. Watch electrolytes, creatinine closely - no need for dialysis yet, hopefully can avoid 06/18 - labs slowly improving, creat 3.09 - Start IVF, stop bicarb gtt 06/19 - Creat 2.16- improved - NS started at 75ml/hr - urine OP improving 06/20 - Creat 1.45 - baseline 1.10 - trend - IV fluids only to run with K+ Code(s): N17.9 - ACUTE KIDNEY FAILURE, UNSPECIFIED (2) Hypertensive chronic kidney disease with stage 1 through stage 4 chronic kidney disease, or unspecified chronic kidney disease Current Visit: Yes Status: Acute Assessment & Plan: Under fair control - Continue bp meds but hold CHRISTINE/HCTZ - Monitor blood pressure readings Code(s): I12.9 - HYPERTENSIVE CHRONIC KIDNEY DISEASE W STG 1-4/UNSP CHR KDNY (3) Hyponatremia Current Visit: Yes Status: Acute Assessment & Plan: Likely from hypovolemia +/- thiazide diuretics 1. Isotonic IVFs 2. Hold HCTZ 3. Check urine lytes, urine osmo 4. Monitor electrolytes closely 06/18 - Na+ 128- Started D5NS at 150 ml/hr 06/19 - Na+ 138- resolved - D5NS stopped Code(s): E87.1 - HYPO-OSMOLALITY AND HYPONATREMIA (4) Metabolic acidosis Current Visit: Yes Status: Acute Assessment & Plan: Secondary to CHICHO 1. Bicarb drip 2. Monitor ABG prn 3. Watch kidney function closely 06/18 - resolved - bicarb gtt stopped Code(s): E87.20 - ACIDOSIS, UNSPECIFIED (5) Acute cholecystitis Current Visit: No Status: Acute Assessment & Plan: Status post antibiotics for acute cholangitis 1. Will need transfer to for further eval 2. Continue antibiotics 3. Monitor drainage 4. Unasyn started IV - Flush drain daily Code(s): K81.0 - ACUTE CHOLECYSTITIS (6) UTI (urinary tract infection) Current Visit: Yes Status: Acute Assessment & Plan: - UC + for Klebsiella- Continue Unasyn- sensitivity shows pansensitive - IVF Code(s): N39.0 - URINARY TRACT INFECTION, SITE NOT SPECIFIED Code(s): N39.0 - URINARY TRACT INFECTION, SITE NOT SPECIFIED
[2023-06-21 19:48] VITALS: BP 142/74; PULSE 52; TEMP 97.8; O2SAT 97
--- NOTE | 2023-06-22 15:07 | PCM.DS ---
Discharge Summary Date of Admission: 06/18/23 12:45 Date of Discharge: 06/22/23 Admitting Physician: PASCUAL SOLITARIO MD Primary Care Provider: CHANDLER ALMONTE MD Allergies Allergies Sulfa (Sulfonamide Antibiotics) Allergy (Verified 06/17/23 19:13) Hospital Summary - Hospital Course Hospital Course: 06/17/24 Ms. CRONIN is a 82 year old female with a past medical history significant for hypertension, hyperlipidemia and diabetes with recent admission for abdominal pain status post ERCP 06/07/23 at where she was diagnosed with cholangitis and treated with antibiotics/drain. She presented to the ER after she had noticed decreasing drainage and was worried about dehydration as she was not eating/drinking much. Upon arrival, she was found to have an elevated creatinine of 4.0 associated with sodium of 128 and bicarb 10. She was given IVFs and recommended for admission. She is resting in bed, awake/alert. No fever or chills. No chest pain or shortness of breath. No nausea, vomiting or diarrhea. No dysuria, hematuria or foamy urine. No recent NSAIDs or contrast exposure. Bicarb gtt and antibiotics started. She has no c/o pain. She is not in any distress. She denies CP, SOB< abd. pain, N/V/D. 06/19/23 Pt resting in bed. She has no c/o pain. She was to transfer yesterday but a bed at did not open. Plan is for pt to d/c today. Pt is currently NPO. Bicarb gtt stopped at Co2 27. Sodium 1225 D5NS started. K+ 3.1 and replaced. Continue antibiotics for acute choley with recent cholangitis with drain placed at [facility]. Pt also has UTI and UC pending. Drain is currently draining thick brown foul smelling output. Pt denies CP, SOB, abd. pain, N/V/D. 06/20/23 Pt resting in bed. She is feeling better and has better color today. She is producing more urine and CHICHO improving. However, still not at baseline. Na+ improved, will change IVF to NS. UC came back + for Klebsiella, will continue current antibiotic. She is still awaiting a bed at and it was thought she was to leave the previous 2 days. Hopefully a bed will open today. She denies CP, SOB, abd. pain, N/V/D. 06/21/23 Pt sitting up in bed. She does report some nausea today. IU did not have a bed open again last night. Labs are improving and she is having drainage from drain. Drainage amount charted under other I&O. Continue antibiotics. and IVF. CHICHO is improving. May d/c to home tomorrow if she is not transferred today. She can then f/u OP as scheduled. She denies CP, SOB, Abd. pain, V/D. Pt transferred to on 06/21/23 afternoon. - Vitals & Intake/Output Vital Signs: Vital Signs Temperature 97.8 F 06/21/23 19:47 Pulse Rate 52 L 06/21/23 19:47 Respiratory Rate 18 06/21/23 19:47 Blood Pressure 142/74 06/21/23 19:47 O2 Sat by Pulse Oximetry 97 06/21/23 19:47 Intake & Output: Intake & Output 06/20/23 06/21/23 06/22/23 06/23/23 11:59 11:59 11:59 11:59 Intake Total 3181 4231 1958 Output Total 1100 1230 Balance 2081 3001 1958 - Lab Result Diagrams: 06/21/23 05:34 06/21/23 05:34 Lab Results-Last 24 Hrs: Lab Results-Last 24 Hours 06/21/23 06/21/23 Range/Units 17:41 20:51 POC Glucometer 154 H 167 H (74 to 106) mg/dL Micro Results-Entire Visit: Microbiology 06/17/23 04:50 Urine Culture - Final Clean Catch Midstream Klebsiella Pneumoniae Accuchecks Date 06/21/23 Date 06/21/23 Time 21:00 Time 17:23 - Procedures and Test Procedures and Tests throughout Hospitalization: Therapy Orders & Screens 06/18/23 00:20 OT Screen per Nursing Assess ONCE Comment: Protocol Order Physician Instructions: Greater than 3 points order OT Admission Screening Reason For Exam: Triggered on Admission Diagnosis: Acute renal injury, metabolic acidosis, dehydration Open Wound/Cellutlitis/Pressure Ulcers: Yes Acute Fx/ORIF/Change in wt bearing status: No Severe MUSCULOSKELETAL pain: No ADL Dysfunction: No Acute CVA w/Hemiparesis/Hemiplegia: No Decreased Functional Mobility/Strength: No Sprain/Strain: No Acute Post-op Mobility Dysfunction: No Total Points: 5 PT Screen per Nursing Assess ONCE Comment: Protocol Order Physician Instructions: Greater than 3 points order PT Admission Screenin Reason For Exam: Triggered on Admission Diagnosis: Acute renal injury, metabolic acidosis, dehydration Open Wound/Cellutlitis/Pressure Ulcers: Yes Acute Fx/ORIF/Change in wt bearing status: No Severe MUSCULOSKELETAL pain: No ADL Dysfunction: No Acute CVA w/Hemiparesis/Hemiplegia: No Decreased Functional Mobility/Strength: No Sprain/Strain: No Acute Post-op Mobility Dysfunction: No Total Points: 5 ST Screen per Nursing Assess ONCE Comment: Protocol Order Physician Instructions: Greater than [address] Admission Screening Reason For Exam: Triggered on Admission Diagnosis: Acute renal injury, metabolic acidosis, dehydration CVA/Dyshpagia/Aphasia: No Cognitive Deficits: No Dehydration/Nutrition Deficit: Yes Reflux: No Oral-Motor Difficulties: No Pneumonia: No Long Term Resident: No Total Points: 5 Discharge Exam General Appearance: no apparent distress, alert Neurologic Exam: alert, oriented x 3, cooperative, normal mood/affect, nml cerebellar function, sensation nml, No motor deficits Eye Exam: PERRL, EOMI, eyes nml inspection Ears, Nose, Throat Exam: normal ENT inspection, pharynx normal, moist mucous membranes Neck Exam: normal inspection, non-tender, supple, full range of motion Respiratory Exam: normal breath sounds, lungs clear, No respiratory distress Cardiovascular Exam: regular rate/rhythm, normal heart sounds Gastrointestinal/Abdomen Exam: soft, No tenderness, No mass Pelvic Exam: deferred Rectal Exam: deferred Back Exam: normal inspection, normal range of motion, No CVA tenderness, No v ertebral tenderness Extremity Exam: normal inspection, normal range of motion Skin Exam: normal color, warm, dry Final Diagnosis/Problem List - Final Discharge Diagnosis/Problem (1) Acute renal injury Status: Acute Code(s): N17.9 - ACUTE KIDNEY FAILURE, UNSPECIFIED (2) Hypertensive chronic kidney disease with stage 1 through stage 4 chronic kidney disease, or unspecified chronic kidney disease Status: Acute Code(s): I12.9 - HYPERTENSIVE CHRONIC KIDNEY DISEASE W STG 1-4/U NSP CHR KDNY (3) Hyponatremia Status: Acute Code(s): E87.1 - HYPO-OSMOLALITY AND HYPONATREMIA (4) Metabolic acidosis Status: Acute Code(s): E87.20 - ACIDOSIS, UNSPECIFIED (5) Acute cholecystitis Status: Acute Code(s): K81.0 - ACUTE CHOLECYSTITIS (6) UTI (urinary tract infection) Status: Acute Assessment & Plan: (1) Acute renal injury Current Visit: Yes Status: Acute Assessment & Plan: Likely from prerenal azotemia in setting of thiazide diuretic/CHRISTINE --> ATN but need to rule out AIN from recent antibiotics 1. IVFs- stopped 2. Check urine lytes, urine eos 3. Hold HCTZ, Benazepril 4. Follow I/Os 5. Watch electrolytes, creatinine closely - no need for dialysis yet, hopefully can avoid 06/18 - labs slowly improving, creat 3.09 - Start IVF, stop bicarb gtt 06/19 - Creat 2.16- improved - NS started at 75ml/hr - urine OP improving 06/20 - Creat 1.45 - baseline 1.10 - trend - IV fluids only to run with K+ Code(s): N17.9 - ACUTE KIDNEY FAILURE, UNSPECIFIED (2) Hypertensive chronic kidney disease with stage 1 through stage 4 chronic kidney disease, or unspecified chronic kidney disease Current Visit: Yes Status: Acute Assessment & Plan: Under fair control - Continue bp meds but hold CHRISTINE/HCTZ - Monitor blood pressure readings Code(s): I12.9 - HYPERTENSIVE CHRONIC KIDNEY DISEASE W STG 1-4/UNSP CHR KDNY (3) Hyponatremia Current Visit: Yes Status: Acute Assessment & Plan: Likely from hypovolemia +/- thiazide diuretics 1. Isotonic IVFs 2. Hold HCTZ 3. Check urine lytes, urine osmo 4. Monitor electrolytes closely 06/18 - Na+ 128- Started D5NS at 150 ml/hr 06/19 - Na+ 138- resolved - D5NS stopped Code(s): E87.1 - HYPO-OSMOLALITY AND HYPONATREMIA (4) Metabolic acidosis Current Visit: Yes Status: Acute Assessment & Plan: Secondary to CHICHO 1. Bicarb drip 2. Monitor ABG prn 3. Watch kidney function closely 06/18 - resolved - bicarb gtt stopped Code(s): E87.20 - ACIDOSIS, UNSPECIFIED (5) Acute cholecystitis Current Visit: No Status: Acute Assessment & Plan: Status post antibiotics for acute cholangitis 1. Will need transfer to for further eval 2. Continue antibiotics 3. Monitor drainage 4. Unasyn started IV - Flush drain daily Code(s): K81.0 - ACUTE CHOLECYSTITIS (6) UTI (urinary tract infection) Current Visit: Yes Status: Acute Assessment & Plan: - UC + for Klebsiella- Continue Unasyn- sensitivity shows pansensitive - IVF Code(s): N39.0 - URINARY TRACT INFECTION, SITE NOT SPECIFIED - Discharge Discharge Date: 06/22/23 ([facility]) Disposition: DC TO OTHER HOSP Condition: Stable Prescriptions: Continue Isosorbide Mononitrate [Isosorbide Mononitrate ER] 30 mg PO DAILY Hydrochlorothiazide 25 mg [hydroDIURIL 25 MG] 25 mg PO DAILY Metoprolol Tartrate [Lopressor] 100 mg PO BID Atorvastatin Calcium 40 mg PO DAILY Sertraline HCl [Zoloft] 25 mg PO DAILY Levothyroxine Sodium 75 Mcg [Synthroid 75 Mcg] 75 mcg PO DAILY Trazodone HCl 50 mg [Desyrel 50 mg] 50 mg PO HS Famotidine [Pepcid AC] 20 mg PO DAILY Clopidogrel Bisulfate [Clopidogrel] 75 mg PO EVENING MEAL Insulin Glargine,Hum.rec.anlog [Basaglar Kwikpen U-100] 28 unit SQ HS cilostazoL [Cilostazol] 50 mg PO BID Oxycodone HCl 5 mg PO Q6H PRN PRN PRN Reason: Pain Ondansetron ODT 4 MG [Zofran Odt 4 mg] 1 tab SL QID PRN PRN PRN Reason: Nausea Magnesium Oxide [Magnesium] 400 mg PO EVENING MEAL Amlodipine Besylate/Benazepril [Amlodipine-Benazepril 10-20 mg] 1 tab PO DAILY No Action Insulin Glargine,Hum.rec.anlog [Basaglar Kwikpen U-100] 28 units SQ HS Follow up with: CHANDLER ALMONTE MD [Primary Care Provider] - Forms: Ambulance Transport Record, Transfer Record Inter-Agency
== END 2023-06-21 22:40 | DRG 683 ==
LOC: ED 19:00 → MED SURG 23:08 → OBSVTOIN 06-18 12:45
PROVIDERS: ADMIT Internal Medicine Nephrology; ATTEND Internal Medicine Nephrology
DX: N17.9 Acute kidney failure, unspecified (principal); E87.1 Hypo-osmolality and hyponatremia; E87.20 Acidosis, unspecified; K81.0 Acute cholecystitis; N39.0 Urinary tract infection, site not specified; I12.9 Hypertensive chronic kidney disease with stage 1 through stage 4 chronic kidney disease, or unspecified chronic kidney disease; E11.22 Type 2 diabetes mellitus with diabetic chronic kidney disease; N18.9 Chronic kidney disease, unspecified; E78.5 Hyperlipidemia, unspecified; I25.10 Atherosclerotic heart disease of native coronary artery without angina pectoris; Z79.899 Other long term (current) drug therapy
CPT/HCPCS: 36000; 36415; 36600; 80053; 81001; 82375; 82570; 82803; 82947; 83735; 83935; 84132; 84134; 84300; 84484; 85025; 85027; 87045; 87046; 87077; 87086; 87186; 87427; 87493; 99285; Q3014; 93268; J0295; J1644; J1817; J2405; J3480; A9270-GY; G0378

== ENCOUNTER 2023-07-21 21:43 | Emergency (ER) | payer MEDICARE, OTHER ==
[2023-07-21 22:01] VITALS: TEMP 97.3
[2023-07-21 22:13] LABS: ADD URINE CULTURE? YES (NO); Appearance Clear (Clear); Bacteria Few /HPF (None Seen); Bilirubin Small (Negative); Blood Negative (Negative); Epithelial Cells Moderate /HPF (None Seen); Glucose, Urine Negative (Negative); Hyaline Casts NONE SEEN /LPF (0-2); Ketones Negative (Negative); Leukocyte Esterase Small (Negative); Nitrite Negative (Negative); Ph 5.5 (4.6-8.0); Protein,Urine Dip Trace (Negative); Urobilinogen 0.2 mg/dL (0.2)
[2023-07-21 23:08] VITALS: O2SAT 97
[2023-07-21 23:09] LABS: Absolute Neutrophil Ct (ANC) 6.31 x10^3/uL (1.4-6.9); BASOPHIL % 0.3 % (0.0-0.4); Basophil (Absolute #) 0.03 x10^3/uL (0-0.4); Eosinophil % 1.6 % (0.00-5.0); Eosinophil (Absolute #) 0.15 x10^3/uL (0-0.5); Hematocrit 32.3 % (35-47); Hemoglobin 10.7 g/dL (12.0-16.0); IMMATURE GRAN # 0.03 x10^3u/L (0.00-0.03); IMMATURE GRAN % 0.3 % (0.00-0.4); Lymphocyte (Absolute #) 2.24 x10^3/uL (1.0-4.6); Lymphocytes % 23.7 % (24.0-44.0); Mean Cell Volume 87.1 fL (78-100); Mean Corpuscular Hemoglobin 28.8 pg (26-32); Mean Corpuscular Hgb Concent. 33.1 g/dL (32-36); Mean Platelet Volume 9.1 fL (7.5-11.0); Monocyte (Absolute #) 0.71 x10^3/uL (0.0-1.3); Monocytes % 7.5 % (0.0-12.0); Neutrophil % 66.6 % (36.0-66.0); Platelet Count 259 x10^3/uL (150-450); Red Blood Count 3.71 x10^6/uL (4.1-5.4); Red Cell Distribution Width 14.5 % (11.5-14.0); White Blood Count 9.5 x10^3/uL (4.0-10.5)
[2023-07-21 23:24] LABS: ALBUMIN 3.6 g/dL (3.5-5.0); ANION GAP 10.2 MEQ/L (5-15); BILIRUBIN,TOTAL 0.4 mg/dL (0.2-1.3); Calcium 9.3 mg/dL (8.4-10.2); Creatinine 1 1.07 mg/dL (0.52-1.04); EST GLOMERULAR FILTRATION RATE 51.9 ML/MIN; Total Protein 7.1 g/dL (6.3-8.2)
--- NOTE | 2023-07-21 23:42 | ERPHSYRPT ---
- History of Present Illness Time Seen by Provider: 07/21/23 21:47 Source: patient Exam Limitations: no limitations Patient Subjective Stated Complaint: I feel like the drainage around my drain tube is infected. Triage Nursing Assessment: Pt ambulated into ER without diff, spouse at bedside. Pt is worried about an infection at the puncture site of rt lower abd where she had a drain placed for her gallbladder on 05/2023. Area is pink around drain tube site, no redness or warmth noted, no drainage noted. Spouse brought in a cup of drainage from the actual drain tube, it appears to be grayish/berger and has pus noted. Pt is afebrile and denies any pain. Physician History: 82 years old female with multiple medical problems including hypertension/hyperlipidemia/diabetes mellitus with gallbladder issues status post drain placement at almost 3 weeks ago presented in the ER for evaluation of mild redness around insertion site of the drain. Patient reports no fever or chills, abdominal pain, nausea vomiting. She does have some loose stool. Patient/ report they noticed increased discharge whenever they are flushing and also cloudiness of the discharge as before it used to be clear. Drain is supposed to be removed on July 27. Allergies/Adverse Reactions: Sulfa (Sulfonamide Antibiotics) Allergy (Verified 07/21/23 22:19) Home Medications: Atorvastatin Calcium 40 mg PO DAILY 06/06/23 [History] Clopidogrel Bisulfate [Clopidogrel] 75 mg PO EVENING MEAL 06/06/23 [History] Famotidine [Pepcid AC] 20 mg PO DAILY 06/06/23 [History] Hydrochlorothiazide 25 mg [hydroDIURIL 25 MG] 25 mg PO DAILY 06/06/23 [History] Insulin Glargine,Hum.rec.anlog [Basaglar Kwikpen U-100] 28 unit SQ HS 06/06/23 [History] Isosorbide Mononitrate [Isosorbide Mononitrate ER] 30 mg PO DAILY 06/06/23 [History] Levothyroxine Sodium 75 Mcg [Synthroid 75 Mcg] 75 mcg PO DAILY 06/06/23 [History] Metoprolol Tartrate [Lopressor] 100 mg PO BID 06/06/23 [History] Sertraline HCl [Zoloft] 25 mg PO DAILY 06/06/23 [History] Trazodone HCl 50 mg [Desyrel 50 mg] 50 mg PO HS 06/06/23 [History] Amlodipine Besylate/Benazepril [Amlodipine-Benazepril 10-20 mg] 1 tab PO DAILY 06/17/23 [History] Magnesium Oxide [Magnesium] 400 mg PO EVENING MEAL 06/17/23 [History] Ondansetron ODT 4 MG [Zofran Odt 4 mg] 1 tab SL QID PRN PRN 06/17/23 [History] Oxycodone HCl 5 mg PO Q6H PRN PRN 06/17/23 [History] cilostazoL [Cilostazol] 50 mg PO BID 06/17/23 [History] Insulin Glargine,Hum.rec.anlog [Basaglar Kwikpen U-100] 28 units SQ HS 06/20/23 [History] Hx Tetanus, Diphtheria Vaccination/Date Given: No Hx Influenza Vaccination/Date Given: Yes Hx Pneumococcal Vaccination/Date Given: Yes Travel Risk - International Travel Have you traveled outside of the country in past 3 weeks: No - Emerging Infectious Disease Are you exhibiting symptoms associated with any current EIDs: No Symptoms: Diarrhea - Review of Systems Constitutional: No Symptoms Ears, Nose, & Throat: No Symptoms Respiratory: No Symptoms Cardiac: No Symptoms Abdominal/Gastrointestinal: Diarrhea Genitourinary Symptoms: No Symptoms Skin: No Symptoms Neurological: No Symptoms - Past Medical History Pertinent Past Medical History: Yes Neurological History: No Pertinent History ENT History: Cataracts Cardiac History: Coronary Artery Disease, High Cholesterol, Hypertension, Peripheral Vascular Disease Respiratory History: No Pertinent History Endocrine Medical History: Diabetes Type II Musculoskeletal History: No Pertinent History GI Medical History: Gallbladder Disease History: No Pertinent History Psycho-Social History: Depression Female Reproductive Disorders: No Pertinent History Other Medical History: anemia - Past Surgical History Past Surgical History: Yes Neuro Surgical History: No Pertinent History Cardiac: Cardiac Catheterization, Cardiac Stent, Vascular Surgery Respiratory: No Pertinent History Gastrointestinal: Other Genitourinary: No Pertinent History Musculoskeletal: No Pertinent History Female Surgical History: Tubal Ligation Other Surgical History: stents in legs due to PAD. ERCP with stent and drainage bag - Social History Smoking Status: Former smoker Exposure to second hand smoke: No Drug Use: none - Nursing Vital Signs Nursing Vital Signs: Initial Vital Signs Temperature 97.3 F 05/27/24 22:00 Pulse Rate 97 H 07/21/23 22:00 Respiratory Rate 20 07/21/23 22:00 Blood Pressure 181/92 07/21/23 22:00 O2 Sat by Pulse Oximetry 95 07/21/23 22:00 Pain Scale Pain Intensity 0 - Physical Exam General Appearance: no apparent distress, alert Neck Exam: normal inspection, full range of motion Respiratory Exam: normal breath sounds, lungs clear Cardiovascular Exam: regular rate/rhythm, normal heart sounds Gastrointestinal/Abdomen Exam: soft, normal bowel sounds, other (Right upper quadrant area drain with mild erythema around. No angry looking cellulitis. No tenderness.), No tenderness Back Exam: normal inspection, normal range of motion Extremity Exam: pelvis stable Neurologic Exam: alert, oriented x 3, cooperative Skin Exam: normal color SpO2 Interpretation: normal SpO2: 97 O2 Delivery: Room Air Ordered Tests: Medication Summary Discontinued Medications Generic Name Dose Route Start Last Admin Trade Name Freq PRN Reason Stop Dose Admin Cephalexin HCl 500 mg 07/22/23 00:09 07/22/23 00:11 Cephalexin Mh500 Mg Capsule PO 07/22/23 00:10 500 mg STAT ONE Administration Cephalexin HCl Confirm 07/22/23 00:11 Cephalexin Mh500 Mg Capsule Administered 07/22/23 00:12 Dose 500 mg .ROUTE .[employer] Lab/Rad Data: Laboratory Result Diagrams 07/21/23 23:05 07/21/23 23:05 Laboratory Results 07/21/23 07/21/23 07/21/23 Range/Units 23:05 23:05 23:05 WBC 9.5 (4.0-10.5) x10^3/uL RBC 3.71 L (4.1-5.4) x10^6/uL Hgb 10.7 L (12.0-16.0) g/dL Hct 32.3 L (35-47) % MCV 87.1 (78-100) fL MCH 28.8 (26-32) pg MCHC 33.1 (32-36) g/dL RDW 14.5 H (11.5-14.0) % Plt Count 259 (150-450) x10^3/uL MPV 9.1 (7.5-11.0) fL Gran % 66.6 H (36.0-66.0) % Immature Gran % (Auto) 0.3 (0.00-0.4) % Nucleat RBC Rel Count 0.0 (0.00-0.1) % Eos # (Auto) 0.15 (0-0.5) x10^3/uL Immature Gran # (Auto) 0.03 (0.00-0.03) x10^3u/L Absolute Lymphs (auto) 2.24 (1.0-4.6) x10^3/uL Absolute Monos (auto) 0.71 (0.0-1.3) x10^3/uL Absolute Nucleated RBC 0.00 (0.00-0.01) x10^3u/L Lymphocytes % 23.7 L (24.0-44.0) % Monocytes % 7.5 (0.0-12.0) % Eosinophils % 1.6 (0.00-5.0) % Basophils % 0.3 (0.0-0.4) % Absolute Granulocytes 6.31 (1.4-6.9) x10^3/uL Basophils # 0.03 (0-0.4) x10^3/uL Sodium 138 (135-145) mmol/L Potassium 4.0 (3.5-5.1) mmol/L Chloride 106 (98-107) mmol/L Carbon Dioxide 25 (22-30) mmol/L Anion Gap 10.2 (5-15) MEQ/L BUN 14 (7-17) mg/dL Creatinine 1.07 H (0.52-1.04) mg/dL Estimated GFR 51.9 ML/MIN Glucose 239 H (74-106) mg/dL Calcium 9.3 (8.4-10.2) mg/dL Total Bilirubin 0.40 (0.2-1.3) mg/dL AST 32 (14-36) U/L ALT 20 (0-35) U/L Alkaline Phosphatase 131 H (38-126) U/L Serum Total Protein 7.1 (6.3-8.2) g/dL Albumin 3.6 (3.5-5.0) g/dL Lipase 116 (23-300) U/L Urine Color (Yellow) Urine Appearance (Clear) Urine pH (4.6-8.0) Ur Specific [place] (1.005-1.030) Urine Protein (Negative) Urine Glucose (UA) (Negative) mg/dL Urine Ketones (Negative) Urine Blood (Negative) Urine Nitrite (Negative) Urine Bilirubin (Negative) Urine Urobilinogen (0.2) mg/dL Ur Leukocyte Esterase (Negative) U Hyaline Cast (Auto) (0-2) /LPF Urine Microscopic RBC (0-5) /HPF Urine Microscopic WBC (0-5) /HPF Ur Epithelial Cells (None Seen) /HPF Urine Bacteria (None Seen) /HPF Urine Culture Reflexed (NO) 07/21/23 Range/Units 21:52 WBC (4.0-10.5) x10^3/uL RBC (4.1-5.4) x10^6/uL Hgb (12.0-16.0) g/dL Hct (35-47) % MCV (78-100) fL MCH (26-32) pg MCHC (32-36) g/dL RDW (11.5-14.0) % Plt Count (150-450) x10^3/uL MPV (7.5-11.0) fL Gran % (36.0-66.0) % Immature Gran % (Auto) (0.00-0.4) % Nucleat RBC Rel Count (0.00-0.1) % Eos # (Auto) (0-0.5) x10^3/uL Immature Gran # (Auto) (0.00-0.03) x10^3u/L Absolute Lymphs (auto) (1.0-4.6) x10^3/uL Absolute Monos (auto) (0.0-1.3) x10^3/uL Absolute Nucleated RBC (0.00-0.01) x10^3u/L Lymphocytes % (24.0-44.0) % Monocytes % (0.0-12.0) % Eosinophils % (0.00-5.0) % Basophils % (0.0-0.4) % Absolute Granulocytes (1.4-6.9) x10^3/uL Basophils # (0-0.4) x10^3/uL Sodium (135-145) mmol/L Potassium (3.5-5.1) mmol/L Chloride (98-107) mmol/L Carbon Dioxide (22-30) mmol/L Anion Gap (5-15) MEQ/L BUN (7-17) mg/dL Creatinine (0.52-1.04) mg/dL Estimated GFR ML/MIN Glucose (74-106) mg/dL Calcium (8.4-10.2) mg/dL Total Bilirubin (0.2-1.3) mg/dL AST (14-36) U/L ALT (0-35) U/L Alkaline Phosphatase (38-126) U/L Serum Total Protein (6.3-8.2) g/dL Albumin (3.5-5.0) g/dL Lipase (23-300) U/L Urine Color Dark Yellow A (Yellow) Urine Appearance Clear (Clear) Urine pH 5.5 (4.6-8.0) Ur Specific [place] 1.020 (1.005-1.030) Urine Protein Trace A (Negative) Urine Glucose (UA) Negative (Negative) mg/dL Urine Ketones Negative (Negative) Urine Blood Negative (Negative) Urine Nitrite Negative (Negative) Urine Bilirubin Small A (Negative) Urine Urobilinogen 0.2 (0.2) mg/dL Ur Leukocyte Esterase Small A (Negative) U Hyaline Cast (Auto) NONE SEEN (0-2) /LPF Urine Microscopic RBC 6-10 A (0-5) /HPF Urine Microscopic WBC 11-20 A (0-5) /HPF Ur Epithelial Cells Moderate A (None Seen) /HPF Urine Bacteria Few A (None Seen) /HPF Urine Culture Reflexed YES (NO) - Progress Progress: improved Progress Note: 07/21/23 23:53 82 years old female with gallbladder drain/cholecystostomy tube in place and als o possible pancreatic stent is evaluated in the ER for drain insertion site area redness and some increased drainage while flushing. Patient is afebrile. No abdominal tenderness. She has normal white count, fairly unremarkable chemistries. Some element of UTI and started on Keflex. I have discussed with Dr. Buckner general surgery from [facility] with patient's primary surgeon, reviewed history, workup, recommended no further intervention and patient needs to follow-up outpatient as scheduled. I have discussed the results of workup and surgery recommendation with patient and family which they understand and agree. 05/28/24 01:24 ct abdomen pelvis showed cholecystostomy tube well in place with no collection or infestation. Biliary stent well in place with some stone still there. Do not think patient needs any further workup and she is being discharged with outpatient follow-up. Discussed with Dr.: Other (Dr. Buckner laparoscopic surgery) Counseled pt/family regarding: lab results, diagnosis, need for follow-up, rad r marco a Medical Desision Making - Independent Historian Additional History obtained from: Spouse - Diagnostic Testing Diagnostic test were ordered, analyzed, and reviewed by me: Yes Radiological Interpretation: Reviewed by me, Teleradiologist Report - Risk of complications The pt has a mod risk of morbidity or mortality based on: Need for prescription drug management - Departure Departure Disposition: Home Clinical Impression: Encounter for postoperative wound check, Increased wound drainage, UTI (urinary tract infection) Condition: Stable Critical Care Time: No Referrals: CHANDLER ALOMNTE MD [Primary Care Provider] - Follow up with PCP 1 day Instructions: Wound Care (DC) Additional Instructions: Follow-up with your primary care and primary general surgeon at . Call for appointment in the morning. Return to ER for intractable abdominal pain/vomiting/fever chills etc. Prescriptions: Cephalexin Mh 500 mg [Keflex 500 mg] 500 mg PO TID #21 cap
[2023-07-22] MEDS ORDERED: KEFLEX 500 MG ONE (00:11)
[2023-07-22] MEDS: KEFLEX 500 MG PO ONE (00:11)
--- NOTE | 2023-07-22 00:54 | XRAY ---
CLINICAL HISTORY: GB fossa abscess ? COMPARISON: 06/06/2023 TECHNIQUE: A CT scan of the abdomen and pelvis was performed without IV contrast. Coronal and sagittal reconstructive images were also obtained. One of the following dose reduction techniques was utilized for this exam: Automated exposure control, adjustment of the mA and/or kV according to patient size, use of iterative reconstruction? FINDINGS: Gall bladder percutaneous cholecystostomy tube application is noted with mild gall bladder distension showing intraluminal non homogenous contents and 2.2 cm lamellated calculus. Gall bladder mild mural thickening reaching 5 mm in thickness with subtle smudged pericholecystic fat planes yet with no obvious encysted collections. A biliary stent is seen extending from the tesfaye hepatis/common hepatic duct down to the 2nd part of the duodenum. Prominent intra and extra-hepatic biliary tracts with common bile duct intraluminal dense calculi. The liver is normal in size and shape and with regular margins. No focal or diffuse parenchymal abnormality. Pancreatic atrophic changes. No peripancreatic fat stranding, pancreatic pseudocyst, or peripancreatic fluid collection. Spleen normal in size, no mass seen. Both adrenal glands are unremarkable. Both kidneys are normal in size, shape, and orientation. Bilateral renal cysts noted, the largest on the right 8.1 x 5.3 cm, and one on the left measuring 3.3 x 2.6 cm. A small calcific focus is seen at the midpole of the right kidney, and one of the right renal cortical cysts show dense contents. Branching hypodesneity involving the right renal pelvicalyceal system that could represent para-pelvic cysts versus hydronephrosis. The urinary bladder is under-distended and shows mild mural thickening. Extensive aortoiliac atheromatous calcifications. An air-filled diverticulum seen along the 2nd part of the duodenum. Stomach and small bowel loops are unremarkable. The caecum and ileocecal junction appear normal. Large bowel loops appear normal without evidence of bowel obstruction. The sigmoid and rectum appear normal. No evidence of significant enlargement of the mesenteric or retroperitoneal lymph nodes. Visualized thoracic and lumbar spine show degenerative spondylosis. L4 1st degree degenerative anterolitheisis. Sclerosis and irregularity of proximal sacrum. IMPRESSION: 1. Interval application of percutaneous cholecystostomy tube application with regression of the gall bladder distension and mural thickening and still noted gall bladder calculus. with no obvious encysted collections. 2. Interval application of a biliary stent with prominent intra and extra-hepatic biliary tracts associated with still noted common bile duct intraluminal dense calculi. 3. The rest of the study appear stationary. Electronically Signed by: Karolyn Valero MD. (07/22/2023 00:49:16 EDT)
[2023-07-22 01:03] VITALS: BP 135/71; PULSE 81; RESP 17
== END 2023-07-22 01:14 | disposition home or self-care (01) ==
LOC: ED 21:43
DX: Z48.03 Encounter for change or removal of drains (principal); N39.0 Urinary tract infection, site not specified; R19.7 Diarrhea, unspecified; I10 Essential (primary) hypertension; E78.5 Hyperlipidemia, unspecified; E11.9 Type 2 diabetes mellitus without complications; Z79.02 Long term (current) use of antithrombotics/antiplatelets; Z79.4 Long term (current) use of insulin; Z79.891 Long term (current) use of opiate analgesic
CPT/HCPCS: 36415; 74176; 80053; 81001; 83690; 85025; 87086; 99284; A9270-GY

== ENCOUNTER 2024-04-12 15:27 | Emergency (ER) | payer MEDICARE, OTHER ==
--- NOTE | 2024-04-12 16:02 | ERPHSYRPT ---
- History of Present Illness Time Seen by Provider: 04/12/24 15:40 Source: patient, family Physician History: This is an 83-year-old white female patient who has hypertension and presents with several day history of intermittent headache, dizziness symptoms. She has been keeping a log of her blood pressure readings. They have been elevated significantly at times during the last several days. She denies chest pain. She denies shortness of breath. She underwent a surgical procedure within the last month or so and after that procedure, her primary care provider (Dr. Glez) did not put her back on her amlodipine and hydrochlorothiazide. Instead, he put her on losartan. She felt that the combination of amlodipine and hydrochlorothiazide was working to control her blood pressure which she states is usually in the 130s. Patient has a history of hyperlipidemia, hypothyroidism, insulin-dependent diabetes, hypertension, peripheral vascular disease. She has a history of coronary disease and has cardiac stents in place. Timing/Duration: day(s) (Intermittently for the last several days) Severity: moderate Modifying Factors: Improves With: nothing Associated Symptoms: other (Dizziness intermittently) Allergies/Adverse Reactions: Sulfa (Sulfonamide Antibiotics) Allergy (Verified 07/21/23 22:19) Home Medications: Atorvastatin Calcium 40 mg PO DAILY 06/06/23 [History] Clopidogrel Bisulfate [Clopidogrel] 75 mg PO EVENING MEAL 06/06/23 [History] Famotidine [Pepcid AC] 20 mg PO DAILY 06/06/23 [History] Hydrochlorothiazide 25 mg [hydroDIURIL 25 MG] 25 mg PO DAILY 06/06/23 [History] Insulin Glargine,Hum.rec.anlog [Basaglar Kwikpen U-100] 28 unit SQ HS 06/06/23 [History] Isosorbide Mononitrate [Isosorbide Mononitrate ER] 30 mg PO DAILY 06/06/23 [History] Levothyroxine Sodium 75 Mcg [Synthroid 75 Mcg] 75 mcg PO DAILY 06/06/23 [History] Metoprolol Tartrate [Lopressor] 100 mg PO BID 06/06/23 [History] Sertraline HCl [Zoloft] 25 mg PO DAILY 06/06/23 [History] Trazodone HCl 50 mg [Desyrel 50 mg] 50 mg PO HS 06/06/23 [History] Amlodipine Besylate/Benazepril [Amlodipine-Benazepril 10-20 mg] 1 tab PO DAILY 06/17/23 [History] Magnesium Oxide [Magnesium] 400 mg PO EVENING MEAL 06/17/23 [History] Ondansetron ODT 4 MG [Zofran Odt 4 mg] 1 tab SL QID PRN PRN 06/17/23 [History] Oxycodone HCl 5 mg PO Q6H PRN PRN 06/17/23 [History] cilostazoL [Cilostazol] 50 mg PO BID 06/17/23 [History] Insulin Glargine,Hum.rec.anlog [Basaglar Kwikpen U-100] 28 units SQ HS 06/20/23 [History] Hx Tetanus, Diphtheria Vaccination/Date Given: No Hx Influenza Vaccination/Date Given: Yes Hx Pneumococcal Vaccination/Date Given: Yes Travel Risk - Emerging Infectious Disease Are you exhibiting symptoms associated with any current EIDs: No Symptoms: Diarrhea - Review of Systems Constitutional: No Symptoms Eyes: No Symptoms Ears, Nose, & Throat: No Symptoms Respiratory: No Symptoms Cardiac: No Symptoms Abdominal/Gastrointestinal: No Symptoms Genitourinary Symptoms: No Symptoms Musculoskeletal: No Symptoms Skin: No Symptoms Neurological: Dizziness, Headache Psychological: No Symptoms Endocrine: No Symptoms Hematologic/Lymphatic: No Symptoms Immunological/Allergic: No Symptoms All Other Systems: Reviewed and Negative - Past Medical History Pertinent Past Medical History: Yes Neurological History: No Pertinent History ENT History: Cataracts Cardiac History: Coronary Artery Disease, High Cholesterol, Hypertension, Peripheral Vascular Disease Respiratory History: No Pertinent History Endocrine Medical History: Diabetes Type II Musculoskeletal History: No Pertinent History GI Medical History: Gallbladder Disease History: No Pertinent History Psycho-Social History: Depression Female Reproductive Disorders: No Pertinent History Other Medical History: anemia - Past Surgical History Past Surgical History: Yes Neuro Surgical History: No Pertinent History Cardiac: Cardiac Catheterization, Cardiac Stent, Vascular Surgery Respiratory: No Pertinent History Gastrointestinal: Other Genitourinary: No Pertinent History Musculoskeletal: No Pertinent History Female Surgical History: Tubal Ligation Other Surgical History: stents in legs due to PAD. ERCP with stent and drainage bag - Social History Smoking Status: Former smoker Exposure to second hand smoke: No Drug Use: none - Social Determinants of Health Will the patient participate in the screening: Yes Do you worry about a steady place to live?: No In the past 12 months,have you had to go without utilities?: No Transportation Issues: No Has anyone in your support network made you feel unsafe?: No Have you or anyone in your house had to go w/o enough food: No - Nursing Vital Signs Nursing Vital Signs: Initial Vital Signs Temperature 97.8 F 04/12/24 15:27 Pulse Rate 58 L 04/12/24 15:27 Respiratory Rate 18 04/12/24 15:27 Blood Pressure 184/79 04/12/24 15:27 O2 Sat by Pulse Oximetry 98 04/12/24 15:27 Pain Scale Pain Intensity 0 - Physical Exam General Appearance: no apparent distress, alert, anxiety Eye Exam: PERRL/EOMI, eyes nml inspection Ears, Nose, Throat Exam: normal ENT inspection, moist mucous membranes Neck Exam: normal inspection, non-tender, supple, full range of motion Respiratory Exam: normal breath sounds, lungs clear, airway intact, No chest tenderness, No respiratory distress Cardiovascular Exam: regular rate/rhythm, normal heart sounds, normal peripheral pulses Gastrointestinal/Abdomen Exam: soft, normal bowel sounds, No tenderness Pelvic Exam: not done Rectal Exam: not done Back Exam: normal inspection, normal range of motion, No CVA tenderness, No vertebral tenderness Extremity Exam: normal inspection, normal range of motion, pelvis stable Neurologic Exam: alert, oriented x 3, cooperative, 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 No acute ischemia on today's twelve-lead EKG.) Ordered Tests: Active Orders 24 hr Category Date Time Status EKG-ER Only STAT Care 04/12/24 16:37 Active IV Insertion STAT Care 04/12/24 16:37 Active Pulse Oximetry (ED) STAT Care 04/12/24 16:37 Active HEAD WITHOUT CONTRAST [CT] Stat Exams 04/12/24 16:40 Taken CBC W DIFF Stat Lab 04/12/24 17:20 Completed CMP Stat Lab 04/12/24 17:20 Completed CULTURE,URINE Stat Lab 04/12/24 16:38 Received MAGNESIUM Stat Lab 04/12/24 17:20 Completed PROTIME WITH INR Stat Lab 04/12/24 17:20 Completed TROPONIN Q4H Lab 04/12/24 17:20 Completed TROPONIN Q4H Lab 04/12/24 20:45 Ordered TROPONIN Q4H Lab 04/13/24 00:45 Ordered UA W/RFX UR CULTURE Stat Lab 04/12/24 16:38 Completed Medication Summary Generic Name Dose Route Start Last Admin Trade Name Freq PRN Reason Stop Dose Admin Ceftriaxone Sodium 1 gm in 100 mls @ 200 mls/hr 04/12/24 18:18 Rocephin 1 Gm / 100 Ml Nacl IV 04/12/24 18:47 STAT ONE Discontinued Medications Generic Name Dose Route Start Last Admin Trade Name Freq PRN Reason Stop Dose Admin Ceftriaxone Sodium Confirm 04/12/24 18:39 Rocephin 1 Gm / 100 Ml Nacl Administered 04/12/24 18:40 Dose 1 gm in 100 mls @ ud IV .STK-MED ONE Lab/Rad Data: Laboratory Result Diagrams 04/12/24 17:20 04/12/24 17:20 Laboratory Results 04/12/24 04/12/24 04/12/24 Range/Units 17:20 17:20 17:20 WBC (3.98-10.04) x10^3/uL RBC (3.93-5.22) x10^6/uL Hgb (11.2-15.7) g/dL Hct (34.1-44.9) % MCV (79.4-94.8) fL MCH (25.6-32.2) pg MCHC (32.2-35.5) g/dL RDW (11.7-14.4) % Plt Count (182-369) x10^3/uL MPV (9.4-12.3) fL Gran % (34.0-71.1) % Immature Gran % (Auto) (0.001-0.429) % Nucleat RBC Rel Count (0.00-0.2) % Eos # (Auto) (0.04-0.36) x10^3/uL Immature Gran # (Auto) (0.001-0.031) x10^3u/L Absolute Lymphs (auto) (1.18-3.74) x10^3/uL Absolute Monos (auto) (0.24-0.86) x10^3/uL Absolute Nucleated RBC (0.00-0.012) x10^3u/L Lymphocytes % (19.3-51.7) % Monocytes % (4.7-12.5) % Eosinophils % (0.7-5.8) % Basophils % (0.1-1.2) % Absolute Granulocytes (1.56-6.13) x10^3/uL Basophils # (0.01-0.08) x10^3/uL PT 10.7 (9.4-12.5) SECONDS INR 0.98 (0.8-3.0) Sodium 139 (135-145) mmol/L Potassium 4.3 (3.5-5.1) mmol/L Chloride 100 (98-107) mmol/L Carbon Dioxide 29 (22-30) mmol/L Anion Gap 14.5 (5-15) MEQ/L BUN 25 H (7-17) mg/dL Creatinine 1.02 (0.52-1.04) mg/dL Estimated GFR 54.6 ML/MIN Glucose 240 H (74-106) mg/dL Calcium 9.7 (8.4-10.2) mg/dL Magnesium 1.7 (1.6-2.3) mg/dL Total Bilirubin 0.70 (0.2-1.3) mg/dL AST 28 (14-36) U/L ALT 20 (0-35) U/L Alkaline Phosphatase 119 (38-126) U/L Troponin I < 0.012 (0.000-0.033) ng/mL Serum Total Protein 7.4 (6.3-8.2) g/dL Albumin 4.4 (3.5-5.0) g/dL Urine Color (Yellow) Urine Appearance (Clear) Urine pH (4.6-8.0) Ur Specific [place] (1.005-1.030) Urine Protein (Negative) Urine Glucose (UA) (Negative) mg/dL Urine Ketones (Negative) Urine Blood (Negative) Urine Nitrite (Negative) Urine Bilirubin (Negative) Urine Urobilinogen (0.2) mg/dL Ur Leukocyte Esterase (Negative) U Hyaline Cast (Auto) (0-2) /LPF Urine Microscopic RBC (0-5) /HPF Urine Microscopic WBC (0-5) /HPF Ur Epithelial Cells (None Seen) /HPF Urine Bacteria (None Seen) /HPF Urine Culture Reflexed (NO) 04/12/24 04/12/24 Range/Units 17:20 16:38 WBC 9.9 (3.98-10.04) x10^3/uL RBC 4.53 (3.93-5.22) x10^6/uL Hgb 13.3 (11.2-15.7) g/dL Hct 39.7 (34.1-44.9) % MCV 87.6 (79.4-94.8) fL MCH 29.4 (25.6-32.2) pg MCHC 33.5 (32.2-35.5) g/dL RDW 12.8 (11.7-14.4) % Plt Count 250 (182-369) x10^3/uL MPV 8.9 L (9.4-12.3) fL Gran % 61.8 (34.0-71.1) % Immature Gran % (Auto) 0.4 (0.001-0.429) % Nucleat RBC Rel Count 0.0 (0.00-0.2) % Eos # (Auto) 0.14 (0.04-0.36) x10^3/uL Immature Gran # (Auto) 0.04 H (0.001-0.031) x10^3u/L Absolute Lymphs (auto) 2.78 (1.18-3.74) x10^3/uL Absolute Monos (auto) 0.78 (0.24-0.86) x10^3/uL Absolute Nucleated RBC 0.00 (0.00-0.012) x10^3u/L Lymphocytes % 28.1 (19.3-51.7) % Monocytes % 7.9 (4.7-12.5) % Eosinophils % 1.4 (0.7-5.8) % Basophils % 0.4 (0.1-1.2) % Absolute Granulocytes 6.13 (1.56-6.13) x10^3/uL Basophils # 0.04 (0.01-0.08) x10^3/uL PT (9.4-12.5) SECONDS INR (0.8-3.0) Sodium (135-145) mmol/L Potassium (3.5-5.1) mmol/L Chloride (98-107) mmol/L Carbon Dioxide (22-30) mmol/L Anion Gap (5-15) MEQ/L BUN (7-17) mg/dL Creatinine (0.52-1.04) mg/dL Estimated GFR ML/MIN Glucose (74-106) mg/dL Calcium (8.4-10.2) mg/dL Magnesium (1.6-2.3) mg/dL Total Bilirubin (0.2-1.3) mg/dL AST (14-36) U/L ALT (0-35) U/L Alkaline Phosphatase (38-126) U/L Troponin I (0.000-0.033) ng/mL Serum Total Protein (6.3-8.2) g/dL Albumin (3.5-5.0) g/dL Urine Color Yellow (Yellow) Urine Appearance Cloudy A (Clear) Urine pH 5.5 (4.6-8.0) Ur Specific [place] 1.010 (1.005-1.030) Urine Protein Trace A (Negative) Urine Glucose (UA) 500 A (Negative) mg/dL Urine Ketones Negative (Negative) Urine Blood Negative (Negative) Urine Nitrite Negative (Negative) Urine Bilirubin Negative (Negative) Urine Urobilinogen 0.2 (0.2) mg/dL Ur Leukocyte Esterase Moderate A (Negative) U Hyaline Cast (Auto) NONE SEEN (0-2) /LPF Urine Microscopic RBC 3-5 (0-5) /HPF Urine Microscopic WBC 21-50 A (0-5) /HPF Ur Epithelial Cells Few (None Seen) /HPF Urine Bacteria Rare A (None Seen) /HPF Urine Culture Reflexed YES (NO) - Progress Progress: improved Progress Note: 04/12/24 17:10 My medical decision making and the assignment of moderate complexity to this patient's medical issue today is based on review of the patient's past medical history, review of the patient's medication list, reviewed patient drug allergy list, history present illness and physical findings on examination. The workup in this patient includes placement of intravenous line, CBC, CMP, troponin level, twelve-lead EKG, CT scan of the head without contrast, urinalysis. Differential diagnosis includes but is not limited to acute intracranial abnormality, electrolyte abnormality, dehydration, urinary tract infection 04/12/24 18:45 I interpreted the patient's laboratory data results. Based on laboratory data results, the patient does have a urinary tract infection but no other acute, emergent medical issue. CT scan of the head without contrast was interpreted by the radiologist and I reviewed the impression. The impression states there are no comparison films. This study shows a nonacute senile brain with remote lacunar infarct right basal ganglia. Counseled pt/family regarding: lab results, diagnosis, need for follow-up, rad results Medical Desision Making - Independent Historian Additional History obtained from: Spouse - Diagnostic Testing Diagnostic test were ordered, analyzed, and reviewed by me: Yes Radiological Interpretation: Reviewed by me, Teleradiologist Report - Risk of complications The pt has a mod risk of morbidity or mortality based on: Need for prescription drug management - Departure Departure Disposition: Home Clinical Impression: Hypertension, UTI (urinary tract infection) Condition: Stable Critical Care Time: No Referrals: CHANDLER ALMONTE MD [NON-STAFF PHY W/O PRIVILEGES] - Follow up/PCP as directed Additional Instructions: Drink plenty of fluids. Take your antibiotics as prescribed. If you choose to stop the losartan and restart amlodipine and hydrochlorothiazide, make sure you are keeping a log of your blood pressure morning noon and night. In addition, call your prescribing provider tomorrow, 04/13/2024 to make them aware that you have made this change and to arrange a follow-up appointment for further evaluation management. Prescriptions: Cefdinir 300 mg PO BID #14 cap
[2024-04-12 16:12] VITALS: TEMP 97.8
[2024-04-12 17:11] VITALS: O2SAT 98
[2024-04-12 17:27] LABS: Absolute Neutrophil Ct (ANC) 6.13 x10^3/uL (1.56-6.13); BASOPHIL % 0.4 % (0.1-1.2); Basophil (Absolute #) 0.04 x10^3/uL (0.01-0.08); Eosinophil % 1.4 % (0.7-5.8); Eosinophil (Absolute #) 0.14 x10^3/uL (0.04-0.36); Hematocrit 39.7 % (34.1-44.9); Hemoglobin 13.3 g/dL (11.2-15.7); IMMATURE GRAN # 0.04 x10^3u/L (0.001-0.031); IMMATURE GRAN % 0.4 % (0.001-0.429); Lymphocyte (Absolute #) 2.78 x10^3/uL (1.18-3.74); Lymphocytes % 28.1 % (19.3-51.7); Mean Cell Volume 87.6 fL (79.4-94.8); Mean Corpuscular Hemoglobin 29.4 pg (25.6-32.2); Mean Corpuscular Hgb Concent. 33.5 g/dL (32.2-35.5); Mean Platelet Volume 8.9 fL (9.4-12.3); Monocyte (Absolute #) 0.78 x10^3/uL (0.24-0.86); Monocytes % 7.9 % (4.7-12.5); Neutrophil % 61.8 % (34.0-71.1); Platelet Count 250 x10^3/uL (182-369); Red Blood Count 4.53 x10^6/uL (3.93-5.22); Red Cell Distribution Width 12.8 % (11.7-14.4); White Blood Count 9.9 x10^3/uL (3.98-10.04)
[2024-04-12 17:38] LABS: Appearance Cloudy (Clear); Bacteria Rare /HPF (None Seen); Bilirubin Negative (Negative); Blood Negative (Negative); Epithelial Cells Few /HPF (None Seen); Glucose, Urine 500 mg/dL (Negative); Hyaline Casts NONE SEEN /LPF (0-2); Ketones Negative (Negative); Leukocyte Esterase Moderate (Negative); Nitrite Negative (Negative); Ph 5.5 (4.6-8.0); Protein,Urine Dip Trace (Negative); Urobilinogen 0.2 mg/dL (0.2); WBC 21-50 /HPF (0-5)
[2024-04-12 17:41] LABS: INR 0.98 (0.8-3.0); PROTIME 10.7 SECONDS (9.4-12.5)
[2024-04-12 17:48] LABS: ALBUMIN 4.4 g/dL (3.5-5.0); ANION GAP 14.5 MEQ/L (5-15); BILIRUBIN,TOTAL 0.7 mg/dL (0.2-1.3); Calcium 9.7 mg/dL (8.4-10.2); Creatinine 1 1.02 mg/dL (0.52-1.04); EST GLOMERULAR FILTRATION RATE 54.6 ML/MIN; MAGNESIUM 1.7 mg/dL (1.6-2.3); Potassium 4.3 mmol/L (3.5-5.1); Total Protein 7.4 g/dL (6.3-8.2)
[2024-04-12] MEDS ORDERED: ROCEPHIN 1 GM / 100 ML NaCl 1 GM/100 ML IVPB IV ONE (18:39)
[2024-04-12] MEDS: ROCEPHIN 1 GM / 100 ML NaCl 1 GM/100 ML IVPB IV ONE (19:00)
[2024-04-12 19:08] VITALS: BP 146/54; PULSE 47; RESP 14
--- NOTE | 2024-04-13 08:47 | XRAY ---
Indication: Headache. Hypertension. Dizziness. Multiple contiguous images obtained through the head without contrast. Comparison: None Age-appropriate global atrophy, mild periventricular degenerative micro-ischemia bilaterally, and remote lacunar infarct right basal ganglia. No acute intracranial hemorrhage, abnormal extra-axial fluid collection, or mass effect. Fourth ventricle is midline without hydrocephalus. Bony calvarium intact. Visualized paranasal sinuses and mastoid air cells are clear. Impression: Nonacute senile brain with remote lacunar infarct right basal ganglia.
== END 2024-04-12 19:35 | disposition home or self-care (01) ==
LOC: ED 15:27
DX: N39.0 Urinary tract infection, site not specified (principal); I10 Essential (primary) hypertension; R51.9 Headache, unspecified; R42 Dizziness and giddiness; E78.5 Hyperlipidemia, unspecified; E11.9 Type 2 diabetes mellitus without complications; Z79.02 Long term (current) use of antithrombotics/antiplatelets; Z79.4 Long term (current) use of insulin; Z79.899 Other long term (current) drug therapy
CPT/HCPCS: 36415; 70450; 80053; 81001; 83735; 84484; 85025; 85610; 87086; 93005; 94760; 96374; 99284; 99285; J0696